=== PATIENT | female | born 1940 | race Caucasian/White ===

== ENCOUNTER → 2017-09-11 00:56 | Outpatient (REF) | payer SELFPAY ==
[2017-09-11 08:23] LABS: Anion Gap 9.7 mmol/L (3-11); BUN 41 mg/dL (7-18); CO2 26.3 mmol/L (21.0-32.0); CREATININE 3.45 mg/dL (0.55-1.02); Calcium 8.4 mg/dL (8.5-10.1); Chloride 103 mmol/L (98-107); Estimated GFR 12.95 (mL/min/1.73m2); Glucose 82 mg/dL (70-100); Potassium 3.8 mmol/L (3.5-5.1); Sodium 139 mmol/L (136-145)
== END ==
LOC: LBO 00:56
PROVIDERS: PCP Student in an Organized Health Care Education/Training Program; Visit Provider Internal Medicine Nephrology
DX: N18.6 End stage renal disease (principal)

== ENCOUNTER → 2017-09-13 | Outpatient (REF) | payer SELFPAY ==
[2017-09-13 07:45] LABS: Anion Gap 9.8 mmol/L (3-11); BUN 59 mg/dL (7-18); CO2 22.2 mmol/L (21.0-32.0); Calcium 8.3 mg/dL (8.5-10.1); Chloride 105 mmol/L (98-107); Estimated GFR 11.91 (mL/min/1.73m2); Glucose 98 mg/dL (70-100); Potassium 4.3 mmol/L (3.5-5.1); Sodium 137 mmol/L (136-145)
[2017-09-13 07:49] LABS: CREATININE 3.71 mg/dL (0.55-1.02)
== END ==
LOC: LBO
PROVIDERS: PCP Student in an Organized Health Care Education/Training Program; Visit Provider Internal Medicine Nephrology
DX: N18.6 End stage renal disease (principal)
CPT/HCPCS: 36415; 80048

== ENCOUNTER 2017-11-08 16:25 | Outpatient (CLI) | payer MEDICARE, SELFPAY ==
--- NOTE | 2017-11-08 11:41 | DI.RAD_ITS ---
SYMPTOM/DIAGNOSIS: SHORT OF BREATH, RALES LT BASE CHEST X-RAY: Frontal and lateral views. Comparison 07/05/16 The heart is mildly enlarged but stable. Pulmonary vasculature is within normal limits. Chronic interstitial markings are seen in the lungs predominantly the bases suggesting chronic pulmonary fibrosis. No focal consolidating infiltrates, effusions or pneumothoraces are seen. No findings to suggest congestive heart failure are present. Degenerative changes are seen in the spine. The bones appear hyperinflated suggesting underlying COPD. IMPRESSION: No acute pulmonary process. Findings suggestive of chronic interstitial disease. This is identified also on the CT scan of the chest from 07/04/17.
== END 2017-11-08 16:45 ==
PROVIDERS: PCP Student in an Organized Health Care Education/Training Program; Visit Provider Internal Medicine Nephrology
DX: R06.02 Shortness of breath (principal); R09.89 Other specified symptoms and signs involving the circulatory and respiratory systems; J84.9 Interstitial pulmonary disease, unspecified; J44.9 Chronic obstructive pulmonary disease, unspecified
CPT/HCPCS: 71046

== ENCOUNTER → 2017-12-11 14:16 | Outpatient (BNVA) | payer MEDICARE, SELFPAY | PROVIDERS: PCP Student in an Organized Health Care Education/Training Program; Visit Provider Student in an Organized Health Care Education/Training Program | DX: R06.02 Shortness of breath (principal); I48.0 Paroxysmal atrial fibrillation; I27.20 Pulmonary hypertension, unspecified; I13.2 Hypertensive heart and chronic kidney disease with heart failure and with stage 5 chronic kidney disease, or end stage renal disease; N18.6 End stage renal disease; I50.9 Heart failure, unspecified; Z99.2 Dependence on renal dialysis; Z99.81 Dependence on supplemental oxygen | CPT/HCPCS: 36415; 80048; 80076; 99215; 83735; 83880; 84443; 85025; 85610 ==

== ENCOUNTER 2017-12-11 15:29 | Outpatient (CLI) | payer MEDICARE, MEDICAID, SELFPAY ==
[2017-12-11 16:25] LABS: Abs Immature Grans 0.08 k/cumm (0.0-0.09); Absolute Basophil Count 0.08 k/cumm (0.0-0.2); Absolute Eosinophil Count 0.18 k/cumm (0.0-0.7); Absolute Lymphocyte Count 1.36 k/cumm (1.2-3.4); Absolute Monocyte Count 0.83 k/cumm (0.11-0.7); Absolute Neutrophil Count 11.08 k/cumm (1.2-6.7); Basophils % 0.6; Eosinophils % 1.3; HGB 10.9 g/dL (12.0-15.5); Immature Grans % 0.6; Mean Corp. HGB Concentration 32.1 g/dL (32.0-36.0); Mean Corpuscular Hemoglobin 30.3 pg (27.0-33.0); Mean Corpuscular Volume 94.4 fL (80-95); Mean Platelet Volume 9.6 fL (8.0-11.0); Monocytes % 6.1; Neutrophils % 81.4; Platelet Count 318 x1000/uL (130-400); RBC Distribution Width 16.1 % (11.7-14.6); White Blood Cell Count 13.61 k/cumm (4.4-10.8)
[2017-12-11 16:38] LABS: INR 2.1 (1.0-3.5); Prothrombin Time 19.7 sec (9.3-10.8)
[2017-12-11 17:29] LABS: ALT 102 U/L (12-78); AST 52 U/L (15-37); Albumin 3.2 g/dL (3.4-5.0); Alkaline Phosphatase 80 U/L (46-116); Anion Gap 7.9 mmol/L (3-11); BUN 23 mg/dL (7-18); Bilirubin, Direct 0.23 mg/dL (0.00-0.20); Bilirubin, Total 0.8 mg/dL (0.2-1.0); CO2 34.1 mmol/L (21.0-32.0); CREATININE 2.71 mg/dL (0.55-1.02); Calcium 9.1 mg/dL (8.5-10.1); Chloride 95 mmol/L (98-107); Estimated GFR 17.11 (mL/min/1.73m2); Glucose 99 mg/dL (70-100); Magnesium 1.9 mg/dL (1.8-2.4); NT-proBNP 22421 pg/mL; Potassium 3.4 mmol/L (3.5-5.1); Sodium 137 mmol/L (136-145); TSH (W/Ref FT4) 2.01 uIU/mL (0.358-3.74); Total Protein 7.5 g/dL (6.4-8.2)
== END 2017-12-11 15:49 ==
PROVIDERS: PCP Student in an Organized Health Care Education/Training Program; Visit Provider Student in an Organized Health Care Education/Training Program
DX: I35.0 Nonrheumatic aortic (valve) stenosis (principal); R06.02 Shortness of breath; I48.91 Unspecified atrial fibrillation; Z79.01 Long term (current) use of anticoagulants
CPT/HCPCS: 36415; 80048; 80076; 83735; 83880; 84443; 85025; 85610

== ENCOUNTER 2017-12-19 07:15 | Outpatient (CLI) | payer MEDICARE, SELFPAY ==
[2017-12-19 07:44] LABS: HCT 34.2 % (36.0-46.0); HGB 10.9 g/dL (12.0-15.5); Mean Corp. HGB Concentration 31.9 g/dL (32.0-36.0); Mean Corpuscular Hemoglobin 30.2 pg (27.0-33.0); Mean Corpuscular Volume 94.7 fL (80-95); Mean Platelet Volume 8.9 fL (8.0-11.0); Platelet Count 296 x1000/uL (130-400); RBC 3.61 m/cumm (4.00-5.20); RBC Distribution Width 15.8 % (11.7-14.6); White Blood Cell Count 8.76 k/cumm (4.4-10.8)
[2017-12-19 08:57] LABS: Cholesterol 131 mg/dL (50-200); HDL Cholesterol 52 mg/dL (40-60); LDL CHOLESTEROL 64 mg/dL (<100); Triglyceride 86 mg/dL (30-150)
== END 2017-12-19 07:35 ==
PROVIDERS: PCP Student in an Organized Health Care Education/Training Program; Visit Provider Student in an Organized Health Care Education/Training Program
DX: N18.5 Chronic kidney disease, stage 5 (principal); M54.9 Dorsalgia, unspecified; I48.91 Unspecified atrial fibrillation; E78.5 Hyperlipidemia, unspecified
CPT/HCPCS: 36415; 80061; 83721; 85027

== ENCOUNTER 2017-12-26 00:41 | Outpatient (CLI) | payer MEDICARE, SELFPAY ==
--- NOTE | 2017-12-26 10:18 | MERGE_ITS ---
*[facility]* *[facility]* [address] [place] [address] Date of study: 12/26/2017 Transthoracic Echocardiography M-mode, complete 2D, complete spectral Doppler, and color Doppler *STUDY CONCLUSIONS* Impressions: The right ventricular systolic pressure was increased consistent with severe pulmonary hypertension. Summary: 1. Left ventricle: The cavity size was normal. Wall thickness was increased in a pattern of mild LVH. Systolic function was hyperdynamic. The estimated ejection fraction was 65-70%. Diastolic parameters were normal. There was no evidence of elevated ventricular filling pressure by Doppler parameters. 2. Ventricular septum: The contour showed diastolic flattening and systolic flattening. These changes are consistent with RV volume and RV pressure overload. 3. Aortic valve: There was mild stenosis. There was mild regurgitation. Peak velocity (S): 2.6m/sec. Mean gradient (S): 17.5mm Hg. VTI ratio of LVOT to aortic valve: 0.47. Valve area (VTI): 1.2cm^2. 4. Right ventricle: The cavity size was moderately dilated. Wall thickness was moderately increased. Systolic function was mildly reduced. 5. Atrial septum: No defect or patent foramen ovale was identified. 6. Tricuspid valve: There was moderate-severe regurgitation. 7. Pulmonary arteries: Pulmonary systolic pressure was in the range of 75mm Hg to 85mm Hg. 8. Inferior vena cava: The vessel was patent and normal in size. The respirophasic diameter changes were in the normal range (greater than or equal to 50%), consistent with normal central venous pressure. *PATIENT PRESENTATION* Height: 154.9cm ((61in) ) S/D Pressure: 98 / 57 Weight: 61.2kg ((134.7lb) ) BSA: 1.64m^2 Test start time: 10:30 AM. Test stop time: 11:40 AM. PERFORMING Unknown ORDERING Benjamin Castellanos REFERRING Benjamin Castellanos PERFORMING [facility] PNEUDRAULIC SYSTEMS MECHANIC Jessica Cadena, RT (R)(CT), [facility] *PROCEDURE DATA* Procedure information: The patient was identified by two identifiers. This study was interpreted by [facility]. Pertinent images and digital data are archived for permanent storage and are available for subsequent review. Comparison was made to the study of 07/20/2016. Study status: Routine. Transthoracic echocardiography. M-mode, complete 2D, complete spectral Doppler, and color Doppler. A Transthoracic Echocardiogram was performed. Scanning was performed from the parasternal, apical, subcostal, and suprasternal notch acoustic windows. Images were obtained using an [id number] cardiac ultrasound machine. Image quality was adequate. Study completion: The patient tolerated the procedure well. History: PMH: Aortic stenosis. *CARDIAC ANATOMY* Left ventricle: The cavity size was normal. Wall thickness was increased in a pattern of mild LVH. Systolic function was hyperdynamic. The estimated ejection fraction was 65-70%. The tissue Doppler parameters were normal. Diastolic parameters were normal. There was no evidence of elevated ventricular filling pressure by Doppler parameters. Aortic valve: Trileaflet; moderately thickened, moderately calcified leaflets. Doppler: There was mild stenosis. There was mild regurgitation. VTI ratio of LVOT to aortic valve: 0.47. Valve area (VTI): 1.2cm^2. Indexed valve area (VTI): 0.7cm^2/m^2. Peak velocity ratio of LVOT to aortic valve: 0.47. Valve area (Vmax): 1.2cm^2. Indexed valve area (Vmax): 0.7cm^2/m^2. Mean velocity ratio of LVOT to aortic valve: 0.44. Valve area (Vmean): 1.1cm^2. Indexed valve area (Vmean): 0.7cm^2/m^2. Mean gradient (S): 17.5mm Hg. Peak gradient (S): 27.6mm Hg. Aorta: Aortic root: The aortic root was normal in size. Ascending aorta: The ascending aorta was mildly dilated. Mitral valve: Doppler: There was no evidence for stenosis. There was no significant regurgitation. Valve area by pressure half-time: 3.7cm^2. Indexed valve area by pressure half-time: 2.2cm^2/m^2. Peak gradient (D): 5.3mm Hg. Left atrium: The atrium was normal in size. Atrial septum: No defect or patent foramen ovale was identified. Right ventricle: The cavity size was moderately dilated. Wall thickness was moderately increased. Systolic function was mildly reduced. Ventricular septum: The contour showed diastolic flattening and systolic flattening. These changes are consistent with RV volume and RV pressure overload. Pulmonic valve: Doppler: There was no evidence for stenosis. There was mild regurgitation. Peak gradient (S): 4.1mm Hg. Tricuspid valve: Doppler: There was moderate-severe regurgitation. Pulmonary artery: Poorly visualized. Pulmonary systolic pressure was in the range of 75mm Hg to 85mm Hg. Right atrium: The atrium was normal in size. Pericardium: There was no significant pericardial effusion. Systemic veins: Inferior vena cava: Well visualized. The vessel was patent and normal in size. The respirophasic diameter changes were in the normal range (greater than or equal to 50%), consistent with normal central venous pressure. Baseline ECG: Atrial fibrillation. Measurements Left ventricle Value 06/19/2016 Reference LV ID, ED, PLAX (L) 3.0 cm 4.4 3.5 - 6.0 LV ID, ES, PLAX (L) 1.9 cm 2.8 2.1 - 4.0 LV PW thickness, ED, PLAX 1.1 cm 1.0 LV end-diastolic volume, 26 ml 1-p A2C LV ejection fraction, 1-p 58 % 71 A2C LV end-diastolic volume, 34 ml 1-p A4C LV ejection fraction, 1-p 64 % 54 A4C LV e', lateral 0.102 m/sec LV E/e', lateral 11 LV e', medial 0.087 m/sec LV E/e', medial 13 LV e', average 0.094 m/sec LV E/e', average 12 Ventricular septum Value 06/19/2016 Reference IVS thickness, ED, PLAX 1.1 cm 1.0 LVOT Value 06/19/2016 Reference LVOT ID, A-P 1.8 cm 1.8 LVOT area 2.6 cm^2 2.6 LVOT peak velocity, S 1.24 m/sec 1.39 LVOT mean velocity, S 0.9 m/sec LVOT VTI, S 21.6 cm 32.0 LVOT peak gradient, S 6.1 mm Hg 7.8 LVOT mean gradient, S 3.6 mm Hg 4.3 Stroke volume (SV), LVOT 55 ml DP Stroke index (SV/bsa), 34 ml/m^2 LVOT DP Aortic valve Value 06/19/2016 Reference Aortic valve peak 2.6 m/sec 3 velocity, S Aortic valve mean 2.02 m/sec velocity, S Aortic valve VTI, S 46.0 cm Aortic mean gradient, S 17.5 mm Hg Aortic peak gradient, S 27.6 mm Hg 36 VTI ratio, LVOT/AV 0.47 0.47 Aortic valve area, VTI 1.2 cm^2 1.2 Velocity ratio, peak, 0.47 0.46 LVOT/AV Aortic valve area, peak 1.2 cm^2 1.2 velocity Velocity ratio, mean, 0.44 LVOT/AV Aortic valve area, mean 1.1 cm^2 velocity Aortic valve area/bsa, 0.7 cm^2/m^2 mean velocity Aorta Value 06/19/2016 Reference Aortic root ID, ED 2.6 cm Ascending aorta ID, A-P, S 3.3 cm 3.3 Left atrium Value 06/19/2016 Reference LA area, ES, A4C 18.6 cm^2 27 8.8 - 23.4 LA area, ES, A2C 15 cm^2 LA volume/bsa, ES, 1-p A4C 31 ml/m^2 62 LA volume, ES, 2-p 48 ml LA volume/bsa, ES, 2-p 29 ml/m^2 Mitral valve Value 06/19/2016 Reference Mitral E-wave peak 1.15 m/sec 1.3 velocity Mitral deceleration time 208 ms 150 - 230 Mitral pressure half-time 60 ms 79 Mitral peak gradient, D 5.3 mm Hg 6.8 Mitral valve area, PHT, DP 3.7 cm^2 2.8 Tricuspid valve Value 06/19/2016 Reference Tricuspid regurg peak 4 m/sec 3.7 velocity Tricuspid peak RV-RA 65.2 mm Hg 54.9 gradient Right atrium Value 06/19/2016 Reference RA area, ES, A4C 17.6 cm^2 21 8.3 - 19.5 Pulmonic valve Value 06/19/2016 Reference Pulmonic peak gradient, S 4.1 mm Hg 7.4 Legend: (L) and (H) romulo values outside specified reference range. I have personally reviewed the images and have reviewed and edited the reported findings. Electronically signed by Bob Tidwell MD 12/26/2017 13:33
== END 2017-12-26 01:01 ==
PROVIDERS: PCP Student in an Organized Health Care Education/Training Program; Visit Provider Student in an Organized Health Care Education/Training Program
DX: I27.20 Pulmonary hypertension, unspecified (principal); I08.2 Rheumatic disorders of both aortic and tricuspid valves; I35.0 Nonrheumatic aortic (valve) stenosis
CPT/HCPCS: 93306

== ENCOUNTER → 2018-01-01 14:15 | Outpatient (BNVA) | payer MEDICARE, SELFPAY | PROVIDERS: PCP Student in an Organized Health Care Education/Training Program; Visit Provider Student in an Organized Health Care Education/Training Program | DX: R06.02 Shortness of breath (principal); I48.0 Paroxysmal atrial fibrillation; I27.20 Pulmonary hypertension, unspecified; I13.2 Hypertensive heart and chronic kidney disease with heart failure and with stage 5 chronic kidney disease, or end stage renal disease; N18.6 End stage renal disease; Z99.2 Dependence on renal dialysis; E11.22 Type 2 diabetes mellitus with diabetic chronic kidney disease; I50.9 Heart failure, unspecified; J44.9 Chronic obstructive pulmonary disease, unspecified; Z99.81 Dependence on supplemental oxygen | CPT/HCPCS: 99215 ==

== ENCOUNTER 2018-01-09 01:19 | Outpatient (CLI) | payer MEDICARE, SELFPAY ==
--- NOTE | 2018-01-09 14:43 | DI.CT_ITS ---
SYMPTOMS/DIAGNOSIS: PULMONARY HYPERTENSION, I27.[address], HIGH RESOLUTION: CT examination of the chest was performed utilizing helical and high resolution protocol. High resolution scanning was performed in supine inspiratory and expiratory and prone inspiratory positions. Examination is compared to previous examination of 07/04/17. Note is again made of interstitial radiodensities, most prominent in the lung bases with subpleural emphysema and some early honeycombing in the lung bases. There is diffuse central lobular emphysema. Expiratory images show no gross focal air trapping. Healed granulomatous disease again noted with multiple calcified nodules. Tracheobronchial tree appears intact. No acute consolidation seen. No pleural effusions seen. No mediastinal or hilar adenopathy. Images obtained through the upper abdomen are unremarkable. Mild cardiac enlargement noted. No evidence of pericardial effusion. Prominence of mediastinal lymph nodes again noted with 23 mm pretracheal node the largest visible node. CONCLUSION: No gross interval change from 07/04/17. Findings consistent with pulmonary fibrosis with early honeycombing, predominantly involving the lung bases; note is also made of marked central lobular diffuse emphysema.
== END 2018-01-09 01:39 ==
PROVIDERS: PCP Student in an Organized Health Care Education/Training Program; Visit Provider Internal Medicine
DX: I27.20 Pulmonary hypertension, unspecified (principal); J84.10 Pulmonary fibrosis, unspecified; J43.9 Emphysema, unspecified
CPT/HCPCS: 71250

== ENCOUNTER 2018-01-23 13:56 | Outpatient (CLI) | payer MEDICARE, SELFPAY | END 2018-01-23 14:16 | PROVIDERS: PCP Student in an Organized Health Care Education/Training Program; Visit Provider Internal Medicine | DX: J44.9 Chronic obstructive pulmonary disease, unspecified (principal); J43.9 Emphysema, unspecified; I27.20 Pulmonary hypertension, unspecified; Z53.8 Procedure and treatment not carried out for other reasons ==

== ENCOUNTER 2018-01-28 11:05 | Emergency (ER) | payer MEDICARE, SELFPAY ==
[2018-01-28] VITALS (7 sets, daily range): BP systolic 137–152; BP diastolic 43–80; PULSE 66–98; RESP 18–26; TEMP 36; O2SAT 94–98
--- NOTE | 2018-01-28 11:11 | ED.GENADUL_ITS ---
Discharge Plan Disposition Patient Disposition: HOME Condition: Stable Discharge Details Chief Complaint: SOB Clinical Impression: Breath, shortness, COPD (chronic obstructive pulmonary disease) Primary Care Provider: Aury Melissa ED Provider: Bob Pinto [place] Meds and New Rx's Prescriptions: New prednisone 20 mg tablet 60 mg PO DAILY 4 Days Qty: 12 RF: 0 levofloxacin 750 mg tablet 750 mg PO DAILY Qty: 5 RF: 0 No Action methylprednisolone [Medrol (Saul)] 4 mg tablets,dose pack PO RF: 0 capsaicin 0.1 % cream 1 applic TP TID Qty: 56.6 RF: 1 apixaban [Eliquis] 5 mg tablet 5 mg PO BID Qty: 60 RF: 11 psyllium seed (sugar) [Metamucil (sugar)] powder 1 tsp PO BID RF: 0 metoprolol succinate 25 mg tablet extended release 24 hr 25 mg PO BID Qty: 180 RF: 1 varicella-zoster [id number] (PF) [Shingrix (PF)] 50 mcg/0.5 mL suspension for reconstitution 50 mcg IM ONCE Qty: 1 RF: 0 Oxygen EACH NS PRN Qty: 1 RF: 0 acetaminophen 325 MG tablet 650 mg PO Q6H PRN RF: 0 atorvastatin 40 MG tablet 40 mg PO DAILY Qty: 90 RF: 3 allopurinol 100 mg tablet 100 mg PO DAILY Qty: 90 RF: 3 umeclidinium-vilanterol [Anoro Ellipta] 62.5-25 mcg/actuation blister with device 1 inh IH DAILY RF: 0 albuterol sulfate 90 mcg/actuation HFA aerosol inhaler 2 inh IH Q4H PRNRF: 0 ferrous sulfate [FeroSul] 325 MG tablet 650 mg PO DAILY RF: 0 calcium carbonate 500 MG tablet,chewable 1 tab PO TID RF: 0 B complex-vitamin C-folic acid [Nephro-Stanley] 1 TAB tablet 0.8 mg PO DAILY RF: 0 ondansetron 4 MG tablet,disintegrating 4 mg PO Q8H PRN PRNQty: 30 RF: 0 Discharge Instructions Instructions: Dyspnea (ED) Additional Instructions: you are being treated for a copd exacerbation follow up with your primary care provider within a week if you have severe worsening of symptoms or chest pain/pressure return to the emergency department Medical Decision Making 77 yo female with hx of esrd on dialysis mwf with no recent missed sessions per pt, pulmonary htn, copd/emphysema per pt, htn, cvd, who comes in with complaints of intermittent shortness of breath since last night, general weakness and dry cough. Denies recent travel, high fevers or chest pain/pressure. She has no lower extremity edema or calf pain and is speaking in full setnences. She is normally on home o2 at 2.5L and is currently on this and is 98% on my exam and HR of 70. will eval for chf vs pna with chest xray and test for influenza. No chest pain or pressure so doubt acs. No evidence of dvt, worsening hypoxia or tachycardia so doubt PE at this time pt remains stable, feels better after neb and steroids. Labs show known esrd, troponin with mild elevation at 0.09 which is likely from her renal disease, remains pain free. Will repeat this to see if any significant rise. Xray on my read shows possible right lower lobe atelectasis less likely infiltrate. Given her increased cough and wheezing however will start abx to cover for copd exacerbation Dr. Kim from radiology called and he is concerned for possible [place] sign, recs CTA. She remains stable, will order this to eval for PE. She remains Hd stable cta negative for acute finding per Dr. kim. She remains stable. No pna on ct but given her cough and hx of copd will start abx. She will f/u with pcp within a week and return if worsening symptoms Differential Diagnosis influenza, copd, pulmonary htn, pulmonary edema, pna Imaging Data Radiologic Study: Attestation: I personally reviewed and interpreted this imaging study as follows: Imaging: X-Ray Radiologist's impression: possible [place] sign Lab Data Lab results reviewed: Yes I reviewed the patient's lab results. ECG Data Attestation: I personally reviewed and interpreted this ECG (s) as follows: Prior ECG tracings: not available for review Interpretation: sinus rhythm, left axis, pr 200, rate 72 HPI General Mode of arrival: ambulatory . Date/Time Provider Initiated Documentation: 01/28/18 11:07 . Limitations to Documentation: no limitations . Information obtained by: patient . History of Present Illness 77 year old F presents to the emergency department with the chief complaint of shortness of breat, described as moderate, with intensity rated at 4. Patient reports no radiation. Patient started experiencing this day(s) (1) and it has been intermittent. No relieving factors improve symptom(s), No exacerbating factors reported . Patient notes cough and weakness. Patient did receive the following treatments prior to arrival, none Related Data Home Medications Medication Instructions Recorded Confirmed B complex-vitamin C-folic acid 0.8 mg PO DAILY 06/15/16 01/09/18 [Nephro-Stanley] calcium carbonate 1 tab PO TID 06/15/16 01/09/18 ferrous sulfate [FeroSul] 650 mg PO DAILY 06/15/16 01/09/18 acetaminophen 650 mg PO Q6H PRN tab-cap 11/12/16 01/09/18 ondansetron 4 mg PO Q8H PRN PRN #30 tab.rapdis 11/14/16 01/01/18 atorvastatin 40 mg PO DAILY #90 tab-cap 09/13/17 01/09/18 psyllium seed (sugar) oral powder 1 tsp PO BID gm 10/31/17 01/09/18 metoprolol succinate ER 25 mg 25 mg PO BID #180 tab 11/07/17 01/09/18 tablet,extended release 24 hr varicella-zoster glycoE vacc-AS01B 50 mcg IM ONCE #1 each 11/07/17 01/09/18 adj(PF) 50 mcg/0.5 mL IM susp, kit Eliquis 5 mg tablet 5 mg PO BID #60 tab NS 12/16/17 01/09/18 allopurinol 100 mg tablet 100 mg PO DAILY #90 tab-cap 01/01/18 01/09/18 albuterol sulfate HFA 90 2 inh IH Q4H PRN 01/07/18 01/09/18 mcg/actuation aerosol inhaler umeclidinium 62.5 mcg-vilanterol 1 inh IH DAILY 01/07/18 01/09/18 25 mcg/actuation powdr for inhalation capsaicin 0.1 % topical cream 1 applic TP TID #56.6 gm 01/09/18 01/09/18 methylprednisolone 4 mg tablets in mg PO dose pk 01/09/18 01/09/18 a dose pack levofloxacin 750 mg PO DAILY #5 tab 01/28/18 prednisone 60 mg PO DAILY 4 Days #12 tab 01/28/18 Previous Rx's Medication Instructions Recorded ondansetron 4 mg PO Q8H PRN PRN #30 tab.rapdis 11/14/16 atorvastatin 40 mg PO DAILY #90 tab-cap 09/13/17 metoprolol succinate ER 25 mg 25 mg PO BID #180 tab 11/07/17 tablet,extended release 24 hr varicella-zoster glycoE vacc-AS01B 50 mcg IM ONCE #1 each 11/07/17 adj(PF) 50 mcg/0.5 mL IM susp, kit Eliquis 5 mg tablet 5 mg PO BID #60 tab NS 12/16/17 allopurinol 100 mg tablet 100 mg PO DAILY #90 tab-cap 01/01/18 capsaicin 0.1 % topical cream 1 applic TP TID #56.6 gm 01/09/18 levofloxacin 750 mg PO DAILY #5 tab 01/28/18 prednisone 60 mg PO DAILY 4 Days #12 tab 01/28/18 Allergies Allergy/AdvReac Type Severity Reaction Status Date / Time morphine AdvReac Intermediate Nausea Unverified 01/01/18 14:31 paper tape Allergy Unknown rash Uncoded 01/01/18 14:31 Review of Systems Review of Systems All systems reviewed & are unremarkable except as noted in HPI and below Constitutional Denies chills Cardiovascular Denies chest pain Gastrointestinal Denies abdominal pain, Denies nausea and Denies vomiting Genitourinary Denies dysuria Musculoskeletal Denies joint swelling Integumentary/Breasts Denies rash Psychiatric Denies depression Endocrine Denies heat intolerance PFSH Medical History Diabetes (Chronic) ASCVD (arteriosclerotic cardiovascular disease) Atrial fibrillation CHF (congestive heart failure) Diverticulitis Surgical History Carotid endarterectomy EGD w/ BX (03/28/12) Ligation of fallopian tube Vascular Shunt colonscopy w/ bx (03/28/12) hemodialysis shunt (09/28/16) radical nephrectomy left (11/02/16) Family History Mother Essential hypertension Father Heart disease Myocardial infarction Sister Neoplasm Diabetes Social History lives independently: Yes current occupational status: retired Smoking/Tobacco Use Status: Former Tobacco Use quit date: 02/11/89 pack-years: 2 alcohol intake: current alcohol intake frequency: a few times a month Alcohol type: wine Exam Const General: no acute distress Orientation: alert HENMT Head: normal to inspection Ears: external ears normal General nose exam: external nose normal Mouth: moist mucous membranes Eyes General: appearance normal, both eyes and all related structures Neck Neck: normal visual inspection Resp Effort & Inspection: normal respiratory effort and able to speak in complete sentences Cardio Rate: regular rate Skin General skin exam: no rashes or lesions noted Neuro General: alert and oriented x3 Extrem General: normal to inspection Psych Mental Status: mental status grossly normal
[2018-01-28] MEDS: Albuterol/Ipratropium 3 ML UPD VIAL UPD (11:44)
[2018-01-28] MEDS: methylPREDNISolone SUCC 125 MG VIAL IVP (11:44)
[2018-01-28] MEDS: Normal Saline Flush 10 ML SYR IVP (11:44)
[2018-01-28 11:49] LABS: Abs Immature Grans 0.03 k/cumm (0.0-0.09); Absolute Basophil Count 0.03 k/cumm (0.0-0.2); Absolute Eosinophil Count 0.07 k/cumm (0.0-0.7); Absolute Lymphocyte Count 0.91 k/cumm (1.2-3.4); Absolute Monocyte Count 0.59 k/cumm (0.11-0.7); Absolute Neutrophil Count 4.75 k/cumm (1.2-6.7); Basophils % 0.5; Eosinophils % 1.1; HCT 35.3 % (36.0-46.0); HGB 11.4 g/dL (12.0-15.5); Immature Grans % 0.5; Lymphocytes % 14.3; Mean Corp. HGB Concentration 32.3 g/dL (32.0-36.0); Mean Corpuscular Hemoglobin 30.9 pg (27.0-33.0); Mean Corpuscular Volume 95.7 fL (80-95); Mean Platelet Volume 10.1 fL (8.0-11.0); Monocytes % 9.2; Neutrophils % 74.4; Platelet Count 161 x1000/uL (130-400); RBC 3.69 m/cumm (4.00-5.20); RBC Distribution Width 16.6 % (11.7-14.6); White Blood Cell Count 6.38 k/cumm (4.4-10.8)
[2018-01-28 11:59] LABS: INR 1.1 (1.0-3.5); PTT Activated 27.9 sec (21.0-31.4)
[2018-01-28 12:04] LABS: ALT 75 U/L (12-78); AST 48 U/L (15-37); Albumin 3.3 g/dL (3.4-5.0); Alkaline Phosphatase 54 U/L (46-116); Anion Gap 11.5 mmol/L (3-11); BUN 50 mg/dL (7-18); Bilirubin, Total 0.6 mg/dL (0.2-1.0); CO2 29.5 mmol/L (21.0-32.0); Calcium 8.9 mg/dL (8.5-10.1); Chloride 92 mmol/L (98-107); Estimated GFR 10.07 (mL/min/1.73m2); Glucose 113 mg/dL (70-100); Magnesium 1.9 mg/dL (1.8-2.4); NT-proBNP 21722 pg/mL; Potassium 3.5 mmol/L (3.5-5.1); Sodium 133 mmol/L (136-145); Total Protein 7.4 g/dL (6.4-8.2)
[2018-01-28 12:13] LABS: CREATININE 4.29 mg/dL (0.55-1.02); Troponin I 0.09 ng/mL (0.00-0.06)
--- NOTE | 2018-01-28 12:24 | NUR.NOTE ---
Nursing Note: Pt off unit to xray.
--- NOTE | 2018-01-28 12:33 | DI.RAD_ITS ---
SYMPTOM/DIAGNOSIS: SOB PA AND LATERAL CHEST: The lungs are free of infiltrate. There is no pleural effusion. The heart is top limits of normal in size to mildly enlarged. The appearance of the pulmonary arteries would be consistent with pulmonary arterial hypertension. There is no evidence of hilar or mediastinal adenopathy. The tracheal air column is intact. There are atherosclerotic changes involving the aorta without evidence of an aneurysm. SUMMARY: No evidence of overt congestive failure or pneumonia. Borderline cardiomegaly. The possibility of pulmonary embolic disease could not be excluded in this patient and if clinically appropriate, further assessment with a PE CT is recommended.
--- NOTE | 2018-01-28 13:46 | DI.CT_ITS ---
SYMPTOMS/DIAGNOSIS: HYPOXIA, SHORTNESS OF BREATH PE CT: CT angiography was performed with multi slice acquisition and multi planar and 3D reconstruction. The study was conducted according to the usual protocol with intravenous administration of 100 cc of Omnipaque 350. There is evidence of COPD. Small areas of bibasilar fibrosis and/or scarring are identified. There are small calcific areas of nodularity in the right lower lobe consistent with old healed granulomata. There is no apparent mass. There is no hilar or mediastinal adenopathy. The heart is top limits of normal in size. There is evidence in this patient of pulmonary arterial hypertension. There is some prominence of the right atrium and right ventricle; however, there is no clear-cut evidence of overt right ventricular strain. There is no pericardial effusion. There are diffuse atherosclerotic changes involving the aorta without evidence of an aneurysm. Also, coronary artery calcification is demonstrated. SUMMARY: No evidence of pulmonary embolic disease. Chronic pulmonary changes as noted above.
--- NOTE | 2018-01-28 14:11 | NUR.NOTE ---
Nursing Note: Resting in bed, no acute distress. awaiting CT scan. Friend at bedside. will continue to monitor, no needs at this time
[2018-01-28 14:21] LABS: Troponin I 0.08 ng/mL (0.00-0.06)
[2018-01-28] MEDS: Omnipaque 350 MG/ML 100 ML BTL IJ (14:33)
[2018-01-28] MEDS: LEVOFLOXACIN 500 MG, LEVOFLOXACIN 250 MG 750 MG PO (15:39)
== END 2018-01-28 15:49 | disposition home or self-care (01) ==
PROVIDERS: Emergency Provider Emergency Medicine; PCP Student in an Organized Health Care Education/Training Program
DX: R06.02 Shortness of breath (principal); J44.9 Chronic obstructive pulmonary disease, unspecified; Z87.891 Personal history of nicotine dependence; E11.9 Type 2 diabetes mellitus without complications
CPT/HCPCS: 36415; 71275; 80053; 87449; 93005; 94640; 96374; 99285; 71046; 83735; 83880; 84484; 85025; 85610; 85730; 93010; J2930; J3490; J7620

== ENCOUNTER 2018-03-11 00:45 | Outpatient (CLI) | payer MEDICARE, MEDICAID, SELFPAY ==
--- NOTE | 2018-03-11 10:30 | DI.RAD_ITS ---
SYMPTOM/DIAGNOSIS: PULMONARY HYPERTENSION I 27.20 PA AND LATERAL CHEST: Comparison is made with 28 Jan 2018. The heart is mildly enlarged, unchanged. There are chronic interstitial changes greater at the bases. No superimposed acute infiltrate, effusion or pulmonary edema seen. IMPRESSION: Cardiomegaly and interstitial changes. No acute abnormality.
--- NOTE | 2018-03-11 10:30 | DI.NM_ITS ---
SYMPTOM/DIAGNOSIS: PULMONARY HYPERTENSION, I27.20, EXCLUDE CTEPH VENTILATION PERFUSION LUNG SCAN: Comparison is made with chest xray dated 03/11/18. 29.0 millicuries of DTPA were administered via aersol. The ventilation images have a mildly patchy appearance, greater in the upper lobes which could be secondary to emphysematous changes. 4.1 millicuries of Technetium M MAA was administered IV for the perfusion exam. The perfusion images are homogeneous. No perfusion defects are identified. IMPRESSION: Low probability of pulmonary embolism.
== END 2018-03-11 01:05 ==
PROVIDERS: PCP Student in an Organized Health Care Education/Training Program; Visit Provider Nurse Practitioner Adult Health
DX: I27.20 Pulmonary hypertension, unspecified (principal); I42.9 Cardiomyopathy, unspecified; I51.7 Cardiomegaly; R91.8 Other nonspecific abnormal finding of lung field; I35.0 Nonrheumatic aortic (valve) stenosis
CPT/HCPCS: 78582; 71046

== ENCOUNTER 2018-03-31 12:54 | Outpatient (CLI) | payer MEDICARE, SELFPAY | END 2018-03-31 13:14 | PROVIDERS: PCP Student in an Organized Health Care Education/Training Program; Visit Provider Student in an Organized Health Care Education/Training Program | DX: R69 Illness, unspecified | CPT/HCPCS: 36415; 86850; 86900; 86901; 86920; 85014; 85018 ==

== ENCOUNTER 2018-04-02 00:59 | Outpatient (RCR) | payer MEDICARE, MEDICAID, SELFPAY ==
[2018-03-31 13:27] LABS: HCT 27.9 % (36.0-46.0); HGB 9.1 g/dL (12.0-15.5)
[2018-04-02 06:55] VITALS: BP 133/44; PULSE 80; RESP 22; TEMP 36.5; O2SAT 89
[2018-04-02] MEDS: Normal Saline Flush 10 ML SYR IVP (07:19)
[2018-04-02 07:24] VITALS: BP 114/46; PULSE 60; RESP 18; TEMP 36; O2SAT 96
[2018-04-02 07:39] VITALS: BP 115/45; PULSE 65; RESP 18; TEMP 36.1; O2SAT 98
[2018-04-02 08:09] VITALS: BP 123/48; PULSE 57; RESP 20; TEMP 36.4; O2SAT 96
[2018-04-02 09:09] VITALS: BP 135/53; PULSE 58; RESP 18; TEMP 36; O2SAT 95
[2018-04-02] MEDS: Acetaminophen 325 MG TAB 650 MG PO (10:57)
[2018-04-02] MEDS: Furosemide 40 MG/4 ML VIAL IV (11:12)
[2018-04-02 11:24] VITALS: BP 137/57; PULSE 59; RESP 18; TEMP 36.2; O2SAT 95
== END 2018-04-10 23:59 | disposition home or self-care (01) ==
LOC: INF 00:59
PROVIDERS: PCP Student in an Organized Health Care Education/Training Program; Visit Provider Student in an Organized Health Care Education/Training Program
DX: D64.9 Anemia, unspecified (principal); R06.00 Dyspnea, unspecified
CPT/HCPCS: 36415; 36430; 86850; 86900; 86901; 86920; 85014; 85018; J1940; P9016

== ENCOUNTER 2018-04-04 08:41 | Outpatient (REF) | payer MEDICARE, MEDICAID, SELFPAY ==
[2018-04-04 10:20] LABS: HCT 29.5 % (36.0-46.0); HGB 9.4 g/dL (12.0-15.5)
== END 2018-04-04 09:01 ==
LOC: LBN 08:41
PROVIDERS: PCP Student in an Organized Health Care Education/Training Program; Visit Provider Student in an Organized Health Care Education/Training Program
DX: D64.9 Anemia, unspecified (principal); N18.6 End stage renal disease
CPT/HCPCS: 85014; 85018

== ENCOUNTER 2018-04-30 02:20 | Emergency (ER) | payer MEDICARE, MEDICAID, SELFPAY ==
[2018-04-30] VITALS (92 sets, daily range): BP systolic 95–142; BP diastolic 36–88; PULSE 62–79; RESP 12–30; TEMP 36.6–36.9; O2SAT 87–100
--- NOTE | 2018-04-30 02:48 | W.ED.GENAD ---
Discharge Plan Disposition Patient Disposition: [facility] Condition: Serious Discharge Details Chief Complaint: Dizzy/Sync Clinical Impression: Pulmonary hypertension, Acute non-ST elevation myocardial infarction (NSTEMI) Primary Care Provider: Aury Melissa ED Provider: Fernando Monae Home Meds and New Rx's Prescriptions: No Action Eliquis 5 mg tablet 5 mg PO BID Qty: 60 RF: 11 albuterol sulfate 2.5 mg /3 mL (0.083 %) solution for nebulization 2.5 mg IH Q4H PRN (Reason: shortness of breath or wheezing) Qty: 180 RF: 0 compressor, for nebulizer device .ROUTE .MEDSUPPLY Qty: 1 RF: 0 Metamucil (sugar) powder 1 tsp PO BID RF: 0 Shingrix (PF) 50 mcg/0.5 mL suspension for reconstitution 50 mcg IM ONCE Qty: 1 RF: 0 Oxygen EACH NS PRN Qty: 1 RF: 0 acetaminophen 325 MG tablet 650 mg PO Q6H PRN RF: 0 atorvastatin 40 MG tablet 40 mg PO DAILY Qty: 90 RF: 3 allopurinol 100 mg tablet 100 mg PO DAILY Qty: 90 RF: 3 Anoro Ellipta 62.5-25 mcg/actuation blister with device 1 inh IH DAILY RF: 0 albuterol sulfate 90 mcg/actuation HFA aerosol inhaler 2 inh IH Q4H PRNRF: 0 Natalie-Stanley 0.8 mg tablet 1 tab PO DAILY RF: 0 sildenafil (antihypertensive) 20 mg tablet 20 mg PO TID RF: 0 packed RBC See Rx Instructions .ROUTE .COMPLEX Qty: 1 RF: 1 sennosides-docusate sodium [Senna Laxative-Stool Softener] 8.6-50 mg tablet 1 tab PO QHS PRNRF: 0 midodrine 2.5 mg tablet 2.5 mg PO TID RF: 0 ferrous sulfate [FeroSul] 325 MG tablet 650 mg PO DAILY RF: 0 calcium carbonate 500 MG tablet,chewable 1 tab PO TID RF: 0 Tyvaso 1.74 mg/2.9 mL (0.6 mg/mL) Solution For Nebulization 1 inh INHALATION QID RF: 0 Discharge Data Discharge Date/Time-TO BE ENTERED AT DEPARTURE: 04/30/18 12:52 Medical Decision Making <Donn Dumont MD - Last Filed: 05/10/18 23:07> 3:00 --77-year-old female with history of end-stage renal disease on hemodialysis, pulmonary hypertension, atrial fibrillation, COPD, chronic oxygen dependent, recently started on treprostinil (vasodilator) here this morning generally not feeling well with concern for low blood pressure when she checked at home just prior to calling EMS. Patient saturating well on usual 3.5L NC O2 and in no respiratory distress. Possible side effect of new vasodilator. Consider arrhythmia. ECG reviewed and interpreted by me: Sinus rhythm 75 bpm, right axis deviation, T wave inversion noted in lead III (no change from prior ecg 01/28/19). 3:33 -- Trop elevated 0.08 in indeterminate range. This has been elevated in past. Plan to trend. 5:00 -- Repeat trop elevated at 0.11. Called [facility] to request transfer to cardiology. ecg sent as requested. Awaiting callback. Patient reassessed: she remains stable. Still not feeling well. No CP. 6:05 -- Spoke with Dr. Davis (cardiology at [facility]): Dr. Angeles to accept patient in transfer. Awaiting bed confirmation. Recommends not starting heparin. 6:15 --repeat ECG reviewed and interpreted by me: Sinus rhythm 75 bpm, right axis deviation, no STEMI, flattening of previously noted T wave inversion in lead III, no other significant changes noted. <Fernando Monae DO - Last Filed: 04/30/18 13:36> The patient was signed out to me my my colleague Dr. Donn Dumont. We were pending transfer to [facility] at that time. A bed became available at 1205. Patient was transferred by [facility] with no incident. She was given her aspirin, as well as her iron. No complications during the patient's stay here. HPI <Donn Dumont MD - Last Filed: 05/10/18 23:07> General Mode of arrival: EMS. Date/Time Provider Initiated Documentation: 04/30/18 02:45. Limitations to Documentation: no limitations. Information obtained by: EMS. HPI Narrative: 77-year-old female with multiple medical problems including history of end-stage renal disease on hemodialysis, COPD, pulmonary hypertension, here with chief complaint of generally not feeling well. Patient notes that she has been feeling well tonight. Symptoms started around 8 PM yesterday. Symptoms have persisted. Patient states it is difficult for her to describe how she is feeling but that she just does not feel well, at times she feels lightheaded. Most concerning to her is that her blood pressure was 89/50 when she checked it around 130 this morning. Patient notes she recently started a new medicine for her pulmonary hypertension about 2 weeks ago. She believes that this medication may be causing her current symptoms. Patient notes that she feels worse when lying down. Patient denies chest pain. Of note, patient is on a fluid restricted diet -no more than 32 ounces a day. Patient is due for dialysis at 7 AM. Related Data Home Medications Medication Instructions Recorded Confirmed calcium carbonate 1 tab PO TID 06/15/16 04/30/18 ferrous sulfate [FeroSul] 650 mg PO DAILY 06/15/16 04/30/18 acetaminophen 650 mg PO Q6H PRN tab-cap 11/12/16 04/30/18 atorvastatin 40 mg PO DAILY #90 tab-cap 09/13/17 04/30/18 psyllium seed (sugar) oral powder 1 tsp PO BID gm 10/31/17 04/30/18 varicella-zoster glycoE [id number] 50 mcg IM ONCE #1 each 11/07/17 03/28/18 adj(PF) 50 mcg/0.5 mL IM susp, kit Eliquis 5 mg tablet 5 mg PO BID #60 tab NS 12/16/17 04/30/18 allopurinol 100 mg tablet 100 mg PO DAILY #90 tab-cap 01/01/18 04/30/18 albuterol sulfate HFA 90 2 inh IH Q4H PRN 01/07/18 04/30/18 mcg/actuation aerosol inhaler umeclidinium 62.5 mcg-vilanterol 1 inh IH DAILY 01/07/18 04/30/18 25 mcg/actuation powdr for inhalation albuterol sulfate 2.5 mg/3 mL 2.5 mg IH Q4H PRN #180 ml 01/29/18 03/28/18 (0.083 %) solution for nebulization compressor, for nebulizer #1 each 01/29/18 03/28/18 vitamin B complex-vitamin C-folic 1 tab PO DAILY 02/24/18 04/30/18 acid 0.8 mg tablet sildenafil (antihypertensive) 20 20 mg PO TID 03/14/18 04/30/18 mg tablet packed RBC See Rx Instructions .ROUTE 03/30/18 .COMPLEX #1 unit treprostinil [Tyvaso] 1 inh INHALATION QID 04/30/18 04/30/18 midodrine 2.5 mg tablet 2.5 mg PO TID tab 05/05/18 sennosides 8.6 mg-docusate sodium 1 tab PO QHS PRN 05/05/18 50 mg tablet Previous Rx's Medication Instructions Recorded atorvastatin 40 mg PO DAILY #90 tab-cap 09/13/17 varicella-zoster glycoE [id number] 50 mcg IM ONCE #1 each 11/07/17 adj(PF) 50 mcg/0.5 mL IM susp, kit Eliquis 5 mg tablet 5 mg PO BID #60 tab NS 12/16/17 allopurinol 100 mg tablet 100 mg PO DAILY #90 tab-cap 01/01/18 albuterol sulfate 2.5 mg/3 mL 2.5 mg IH Q4H PRN #180 ml 01/29/18 (0.083 %) solution for nebulization compressor, for nebulizer #1 each 01/29/18 packed RBC See Rx Instructions .ROUTE 03/30/18 .COMPLEX #1 unit Allergies Allergy/AdvReac Type Severity Reaction Status Date / Time morphine AdvReac Intermediate Nausea Verified 04/30/18 02:46 paper tape Allergy Unknown rash Uncoded 04/30/18 02:46 General Stated Complaint: Dizzy/Sync FOREIGN: 3 Review of Systems <Donn Dumont MD - Last Filed: 05/10/18 23:07> Review of Systems All systems reviewed & are unremarkable except as noted in HPI and below Constitutional Denies fever(s) Cardiovascular Denies chest pain, Denies diaphoresis, Denies syncope, Denies pedal edema and Denies palpitations Gastrointestinal Reports abdominal pain (chronic and unchanged) and Denies vomiting Integumentary/Breasts Denies rash Neurologic Denies syncope Endocrine Denies palpitations PFSH <Donn Dumont MD - Last Filed: 05/10/18 23:07> Medical History Diabetes (Chronic) H/O echocardiogram (Inactive) ASCVD (arteriosclerotic cardiovascular disease) Atrial fibrillation CHF (congestive heart failure) Diverticulitis Surgical History Hx of cardiac catheterization (Acute 03/04/18) Carotid endarterectomy EGD w/ BX (03/28/12) Ligation of fallopian tube Vascular Shunt colonscopy w/ bx (03/28/12) hemodialysis shunt (09/28/16) radical nephrectomy left (11/02/16) Family History Mother Essential hypertension Father Heart disease Myocardial infarction Sister Neoplasm Diabetes Social History Smoking/Tobacco Use Status: Former Tobacco Use Quit Date: 02/11/89 Pack-years: 2 Alcohol Intake: former Drug use: Never Substance use type: does not use What type of physical activity do you participate in: none Do you feel safe at home: Yes Do you feel safe in your relationship?: Yes Exam <Donn Dumont MD - Last Filed: 05/10/18 23:07> Const General: cooperative and no acute distress HENMT Head: normocephalic and atraumatic Mouth: mucous membranes dry Eyes Conjunctivae: normal conjunctivae Sclera: normal sclerae Neck Neck: trachea midline and supple Resp Auscultation: clear to auscultation bilaterally, no rales, no rhonchi and no wheezes Cardio Jugular venous pressure: no JVD Rate: regular rate and not tachycardic Rhythm: regular rhythm Heart Sounds: murmur systolic II/ GI Palpation: soft, not firm, no guarding, no masses, not rigid and tender (diffuse, mild (patient notes chronic)) Skin General skin exam: no rashes or lesions noted and pallor Neuro General: alert, awake, oriented x3 and tone normal Extrem General: no calf tenderness and no edema Psych Appearance: grossly normal Mental Status: mental status grossly normal Speech and Movement: speech and movement normal Course <Donn Dumont MD - Last Filed: 05/10/18 23:07> Vital Signs Temperature 36.9 C 04/30/18 02:26 Pulse 75 04/30/18 02:26 Respiratory Rate 15 04/30/18 02:26 Blood Pressure 112/88 04/30/18 02:26 Pulse Oximetry 99 04/30/18 02:26 Temperature 36.9 C 04/30/18 02:26 Temperature Source Skin 04/30/18 02:26 Pulse 75 04/30/18 02:26 Respiratory Rate 15 04/30/18 02:26 Respiratory Effort 04/30/18 02:47 Blood Pressure 112/88 04/30/18 02:26 Blood Pressure Position Sitting 04/30/18 02:26 Pulse Oximetry 99 04/30/18 02:26 Oxygen Delivery Method Nasal Cannula 04/30/18 02:26 Oxygen Flow Rate 3.5 04/30/18 02:26 Critical Care Time <Donn Dumont MD - Last Filed: 05/10/18 23:07> Critical Care Time: Yes Total Critical Care Time: 45 Attestation: I spent greater than 45 minutes addressing this patient's immediate life threats, this time includes interpretation of diagnostics, critical decision making, consultation with experts.
[2018-04-30 02:53] LABS: Abs Immature Grans 0.05 k/cumm (0.0-0.09); Absolute Basophil Count 0.08 k/cumm (0.0-0.2); Absolute Eosinophil Count 0.14 k/cumm (0.0-0.7); Absolute Lymphocyte Count 1.58 k/cumm (1.2-3.4); Absolute Monocyte Count 0.81 k/cumm (0.11-0.7); Absolute Neutrophil Count 8.05 k/cumm (1.2-6.7); Basophils % 0.7; Eosinophils % 1.3; HCT 37.4 % (36.0-46.0); HGB 12.1 g/dL (12.0-15.5); Immature Grans % 0.5; Lymphocytes % 14.8; Mean Corp. HGB Concentration 32.4 g/dL (32.0-36.0); Mean Corpuscular Hemoglobin 30.1 pg (27.0-33.0); Mean Platelet Volume 10.2 fL (8.0-11.0); Monocytes % 7.6; Neutrophils % 75.1; Platelet Count 214 x1000/uL (130-400); RBC 4.02 m/cumm (4.00-5.20); RBC Distribution Width 16.4 % (11.7-14.6); White Blood Cell Count 10.71 k/cumm (4.4-10.8)
[2018-04-30 03:10] LABS: ALT 112 U/L (12-78); AST 97 U/L (15-37); Albumin 3.2 g/dL (3.4-5.0); Alkaline Phosphatase 109 U/L (46-116); Anion Gap 11.1 mmol/L (3-11); BUN 46 mg/dL (7-18); Bilirubin, Total 1.1 mg/dL (0.2-1.0); CO2 28.9 mmol/L (21.0-32.0); Calcium 7.8 mg/dL (8.5-10.1); Chloride 95 mmol/L (98-107); Estimated GFR 7.34 (mL/min/1.73m2); Glucose 131 mg/dL (70-100); Magnesium 1.8 mg/dL (1.8-2.4); Potassium 4.3 mmol/L (3.5-5.1); Sodium 135 mmol/L (136-145)
[2018-04-30 03:12] LABS: CREATININE 5.64 mg/dL (0.55-1.02)
[2018-04-30 03:13] LABS: Troponin I 0.08 ng/mL (0.00-0.06)
[2018-04-30 05:12] LABS: Troponin I 0.11 ng/mL (0.00-0.06)
[2018-04-30] MEDS: Aspirin 81 MG CHEW 324 MG CH (11:10)
[2018-04-30] MEDS: Ferrous Sulfate 325 MG TAB 650 MG PO (11:24)
== END 2018-04-30 12:52 | disposition short-term general hospital (02) ==
PROVIDERS: Student in an Organized Health Care Education/Training Program; Emergency Provider Student in an Organized Health Care Education/Training Program; PCP Student in an Organized Health Care Education/Training Program
DX: R42 Dizziness and giddiness (principal); I21.4 Non-ST elevation (NSTEMI) myocardial infarction; I27.20 Pulmonary hypertension, unspecified; I25.10 Atherosclerotic heart disease of native coronary artery without angina pectoris; N18.6 End stage renal disease; I12.0 Hypertensive chronic kidney disease with stage 5 chronic kidney disease or end stage renal disease; Z99.2 Dependence on renal dialysis; E11.22 Type 2 diabetes mellitus with diabetic chronic kidney disease; Z87.891 Personal history of nicotine dependence; Z99.81 Dependence on supplemental oxygen; J44.9 Chronic obstructive pulmonary disease, unspecified; I48.91 Unspecified atrial fibrillation; Z79.01 Long term (current) use of anticoagulants
CPT/HCPCS: 36415; 80053; 93005; 99285; 83735; 83880; 84484; 85025; 93010; 99284

== ENCOUNTER 2018-05-29 08:06 | Emergency (ER) | payer MEDICARE, MEDICAID, SELFPAY ==
[2018-05-29] VITALS (65 sets, daily range): BP systolic 95–136; BP diastolic 32–77; PULSE 69–101; RESP 4–35; TEMP 36.6; O2SAT 88–100
[2018-05-29] MEDS: Omnipaque 350 MG/ML 100 ML BTL IJ (08:38)
[2018-05-29] MEDS: Normal Saline Flush 10 ML SYR IVP (08:39)
--- NOTE | 2018-05-29 08:39 | DI.CT_ITS ---
SYMPTOM/DIAGNOSIS: FELL, HIT HEAD,MIDLINE NECK PAIN, ABD PAIN, CHEST PAIN, SOB, ON ELIQUIS NONCONTRAST HEAD CT: A noncontrast cranial CT was performed. There is mild generalized cerebral atrophy. No calvarial fracture identified. Orbital structures appear intact. Temporal bone structures appear intact with incidental fluid in a few left mastoid air cells. No evidence of acute intracranial hemorrhage, mass effect or midline shift. CONCLUSION: No evidence of acute intracranial injury. CERVICAL SPINE CT: CT examination of the cervical spine was performed utilizing multi slice acquisition and multi planar reconstruction. No cervical fracture identified. Mild degenerative changes noted. No evidence of facet dislocation. Tracheal laryngeal structures appear intact. No cervical mass or adenopathy is seen. CONCLUSION: No evidence of acute cervical fracture. CHEST/ABDOMEN/PELVIC CT: CT examination of the chest, abdomen and pelvis was performed with intravenous infusion of 100 cc's of Omnipaque 350. There are fibrotic changes noted in the lung bases with minimal honey combing. No vascular injury identified in the chest. No evidence of pulmonary embolic disease. Mild prominence of pretracheal lymph nodes noted which is nonspecific but a little more easily seen than on previous chest CT of 01/28/18, maximal selene diameter of about 26 mm. No focal consolidation. No pneumothorax or pleural effusion. No pulmonary mass identified. Cardiomegaly is noted. Trace pericardial effusion. Liver is mildly enlarged. There is cholelithiasis without biliary dilatation. Pancreas is unremarkable. Spleen is unremarkable. Prior left nephrectomy noted, atrophic appearance of the right kidney. Patient is reportedly on dialysis. Adrenals are unremarkable. Abdominal aorta is of normal diameter. No major vascular abnormality is seen. No evidence of intra-abdominal hemorrhage. Small quantity of free fluid noted in the pelvis. Appendix appears normal. No evidence of bowel injury or bowel obstruction. No gross abdominal or pelvic adenopathy. CONCLUSION: No evidence of acute injury of the chest, abdomen or pelvis. Additional findings as described above.
--- NOTE | 2018-05-29 09:05 | ED.GENADUL_ITS ---
Discharge Plan Disposition Patient Disposition: OTHER Condition: Stable Discharge Details Chief Complaint: Trauma Clinical Impression: Syncope, Acute neck pain, Weakness Primary Care Provider: Aury Melissa ED Provider: Fernando Monae Home Meds and New Rx's Prescriptions: No Action Eliquis 5 mg tablet 5 mg PO BID Qty: 60 RF: 11 albuterol sulfate 2.5 mg /3 mL (0.083 %) solution for nebulization 2.5 mg IH Q4H PRN (Reason: shortness of breath or wheezing) Qty: 180 RF: 0 compressor, for nebulizer device .ROUTE .MEDSUPPLY Qty: 1 RF: 0 Metamucil (sugar) powder 1 tsp PO BID RF: 0 Oxygen EACH NS PRN Qty: 1 RF: 0 acetaminophen 325 MG tablet 650 mg PO Q6H PRN RF: 0 atorvastatin 40 MG tablet 40 mg PO DAILY Qty: 90 RF: 3 allopurinol 100 mg tablet 100 mg PO DAILY Qty: 90 RF: 3 Anoro Ellipta 62.5-25 mcg/actuation blister with device 1 inh IH DAILY RF: 0 albuterol sulfate 90 mcg/actuation HFA aerosol inhaler 2 inh IH Q4H PRNRF: 0 sildenafil (antihypertensive) 20 mg tablet 20 mg PO TID RF: 0 packed RBC See Rx Instructions .ROUTE .COMPLEX Qty: 1 RF: 1 sennosides-docusate sodium [Senna Laxative-Stool Softener] 8.6-50 mg tablet 1 tab PO QHS PRNRF: 0 midodrine 2.5 mg tablet 2.5 mg PO TID RF: 0 ferrous sulfate [FeroSul] 325 MG tablet 650 mg PO DAILY RF: 0 calcium carbonate 500 MG tablet,chewable 1 tab PO TID RF: 0 Tyvaso 1.74 mg/2.9 mL (0.6 mg/mL) Solution For Nebulization 1 inh INHALATION QID RF: 0 Nephro-Stanley 0.8 mg Tablet 1 tab PO DAILY RF: 0 Discharge Data Discharge Date/Time-TO BE ENTERED AT DEPARTURE: 05/29/18 15:45 Medical Decision Making This is a 78-year-old female with past medical history of severe pulmonary hypertension, cardiac disease, dialysis, nephrectomy, Eliquis use for A. fib, COPD, who presents today for evaluation of syncope, and trauma to her scalp. Initial EMS evaluation demonstrate hypoxemia in the 70s, however she was not on her chronic home oxygen. Recent dialysis was yesterday. Exam demonstrates no focal neurologic deficits but she has notable bruise and swelling over forehead, mild cervical spine pain, mild generalized chest and abdominal pain. No other signs of significant deformity. With the patient's syncope, mechanism, and physical exam and concerned for acute intracranial bleed, due to the patient's age and risk factors we will get a CT scan of the head neck chest abdomen and pelvis. Perform laboratory evaluation, gentle rehydration, and cardiac evaluation. I do not think CT Shanell was indicated at this time as the patient is chronically on Eliquis and has no history of PEs. Stroke is on the differential but less likely with no current focal neurologic deficits. 10:[address] scan of the head neck chest abdomen and pelvis have returned negative for any acute process. No evidence of acute bleed or fracture per radiology. Laboratory workup demonstrates slightly lower than normal hemoglobin at 10, renal function is elevated as expected with her dialysis, electrolytes are within normal limits. ProBNP is lower than normal at 21,000, troponin is 0.09, which is near her baseline EKG is benign at this time. With a negative CT scan of the neck we did go to clear the C-spine, however after removing the collar the patient still has persistent and notable midline C-spine tenderness. She demonstrates no weakness of the upper extremities, no saddle anesthesia, no weakness lower extremities. No numbness or tingling. Signs and symptoms at this time are clinically inconsistent with anterior or central cord syndrome. However because of the persistent midline neck pain we will place an [place] collar. With the patient's notable cardiac disease, history of severe pulmonary hypertension being notably positive on the [place] syncope rule, in addition to her continued notable midline cervical spine tenderness, do feel that admission for observation, echo, serial troponins and EKGs is certainly reasonable and indicated. Because of the patient's dialysis needs I have contacted [facility], I spoke with the current on-call medical policy specialist, who at this point states that because of bed capacity, the fact that the patient would merely be on observation status, he does not think that the patient should be transferred here at this time, and recommends transferring to another outlying facility. The entirety of the patient's clinical scenario including the traumatic component, her medical component, and her history were discussed with him. We will recheck to the [facility]. 11:35 AM The [facility] is currently not accepting any patients at this time, and the patient will be put on the 24-48-hour list. We contacted [facility], they are also not excepting and will put the patient on the list. I did speak with our hospitalist here, and we do not have any telemetry beds or dialysis capabilities. We are currently reaching out to [facility] in [facility]. 1:06 PM I have discussed the case with the physician , he agrees to accept the patient to [facility] for further medical management. Patient will be transferred by [facility]. I have extensively reviewed the treatment plan with the patient. I have addressed all patient concerns at this time. I have also discussed the plan with the admitting physician and they agree with the current assessment and plan and have agreed to assume responsibility for the patient. All parties demonstrate verbal understanding and agreement with our assessment and plan at this time. At time of transfer the patient was reassessed and continued to demonstrate current medical stability. No signs of acute respiratory distress requiring intubation, hemodynamic instability requiring pressor support, or rapidly declining mental status. The patient is stable for transport. EKG 8: 18 Rate 83, intervals normal, sinus rhythm, no significant ST elevations or depressions, no T wave inversions, small Q wave in lead III. No evidence of STEMI. No evidence of right heart strain. Exam(s) a CT:CT chest/abd/pel w a CT:CT head & cervical spine wo SYMPTOM/DIAGNOSIS: FELL, HIT HEAD,MIDLINE NECK PAIN, ABD PAIN, CHEST PAIN, SOB, ON ELIQUIS NONCONTRAST HEAD CT: A noncontrast cranial CT was performed. There is mild generalized cerebral atrophy. No calvarial fracture identified. Orbital structures appear intact. Temporal bone structures appear intact with incidental fluid in a few left mastoid air cells. No evidence of acute intracranial hemorrhage, mass effect or midline shift. CONCLUSION: No evidence of acute intracranial injury. CERVICAL SPINE CT: CT examination of the cervical spine was performed utilizing multi slice acquisition and multi planar reconstruction. No cervical fracture identified. Mild degenerative changes noted. No evidence of facet dislocation. Tracheal laryngeal structures appear intact. No cervical mass or adenopathy is seen. CONCLUSION: No evidence of acute cervical fracture. CHEST/ABDOMEN/PELVIC CT: CT examination of the chest, abdomen and pelvis was performed with intravenous infusion of 100 cc's of Omnipaque 350. There are fibrotic changes noted in the lung bases with minimal honey combing. No vascular injury identified in the chest. No evidence of pulmonary embolic disease. Mild prominence of pretracheal lymph nodes noted which is nonspecific but a little more easily seen than on previous chest CT of 01/28/18, maximal selene diameter of about 26 mm. No focal consolidation. No pneumothorax or pleural effusion. No pulmonary mass identified. Cardiomegaly is noted. Trace pericardial effusion. Liver is mildly enlarged. There is cholelithiasis without biliary dilatation. Pancreas is unremarkable. Spleen is unremarkable. Prior left nephrectomy noted, atrophic appearance of the right kidney. Patient is reportedly on dialysis. Adrenals are unremarkable. Abdominal aorta is of normal diameter. No major vascular abnormality is seen. No evidence of intra-abdominal hemorrhage. Small quantity of free fluid noted in the pelvis. Appendix appears normal. No evidence of bowel injury or bowel obstruction. No gross abdominal or pelvic adenopathy. CONCLUSION: No evidence of acute injury of the chest, abdomen or pelvis. Additional findings as described above. HPI General Date/Time Provider Initiated Documentation: 05/29/18 08:15 . HPI Narrative: This is a 78-year-old female with an extensive past medical history of nephrectomy, severe renal disease, pulmonary fibrosis and COPD, A. fib on Eliquis, chronic O2 use, dialysis, COPD, minimal urine output, who presents today for evaluation of fall and lightheadedness. Patient states that this morning she was not feeling so well, felt mildly malaise, while she was not feeling well she sat down, next thing she noticed she was on the ground. She had hit her head. She does not recall the event. When EMS initially arrived her O2 was in the 70s, however she is normally on 2 L of oxygen but was not at that time. She felt notably weak after this event and did have some difficulty getting up. She complained of pain in her head, neck, difficulty breathing, and some mild generalized abdominal and chest pain as well after the fall. She denies any focal numbness tingling or weakness. She denies any vision changes. She denies any vomiting or diarrhea. She does make occasional urine denies any recent dysuria. She has no other complaints or modifying factors at this time. Last dialysis was yesterday. Her regular dry weight 62 kg. No other complaints or modifying factors at this time Related Data Home Medications Medication Instructions Recorded Confirmed calcium carbonate 1 tab PO TID 06/15/16 05/29/18 ferrous sulfate [FeroSul] 650 mg PO DAILY 06/15/16 05/29/18 acetaminophen 650 mg PO Q6H PRN tab-cap 11/12/16 05/29/18 atorvastatin 40 mg PO DAILY #90 tab-cap 09/13/17 05/29/18 psyllium seed (sugar) oral powder 1 tsp PO BID gm 10/31/17 05/14/18 Eliquis 5 mg tablet 5 mg PO BID #60 tab NS 12/16/17 05/29/18 allopurinol 100 mg tablet 100 mg PO DAILY #90 tab-cap 01/01/18 05/29/18 albuterol sulfate HFA 90 2 inh IH Q4H PRN 01/07/18 05/29/18 mcg/actuation aerosol inhaler umeclidinium 62.5 mcg-vilanterol 1 inh IH DAILY 01/07/18 05/29/18 25 mcg/actuation powdr for inhalation albuterol sulfate 2.5 mg/3 mL 2.5 mg IH Q4H PRN #180 ml 01/29/18 05/29/18 (0.083 %) solution for nebulization compressor, for nebulizer #1 each 01/29/18 05/14/18 sildenafil (antihypertensive) 20 20 mg PO TID 03/14/18 05/29/18 mg tablet packed RBC See Rx Instructions .ROUTE 03/30/18 05/14/18 .COMPLEX #1 unit treprostinil [Tyvaso] 1 inh INHALATION QID 04/30/18 05/29/18 midodrine 2.5 mg tablet 2.5 mg PO TID tab 05/05/18 05/29/18 sennosides 8.6 mg-docusate sodium 1 tab PO QHS PRN 05/05/18 05/29/18 50 mg tablet B complex-vitamin C-folic acid 1 tab PO DAILY 05/29/18 05/29/18 [Nephro-Stanley] Previous Rx's Medication Instructions Recorded atorvastatin 40 mg PO DAILY #90 tab-cap 09/13/17 Eliquis 5 mg tablet 5 mg PO BID #60 tab NS 12/16/17 allopurinol 100 mg tablet 100 mg PO DAILY #90 tab-cap 01/01/18 albuterol sulfate 2.5 mg/3 mL 2.5 mg IH Q4H PRN #180 ml 01/29/18 (0.083 %) solution for nebulization compressor, for nebulizer #1 each 01/29/18 packed RBC See Rx Instructions .ROUTE 03/30/18 .COMPLEX #1 unit Allergies Allergy/AdvReac Type Severity Reaction Status Date / Time morphine AdvReac Intermediate Nausea Verified 05/29/18 08:58 paper tape Allergy Unknown rash Uncoded 05/29/18 08:58 General Stated Complaint: Trauma FOREIGN: 2 Review of Systems Review of Systems All systems reviewed & are unremarkable except as noted in HPI and below PFSH Medical History Orthostatic hypotension (Chronic) COPD (chronic obstructive pulmonary disease) with emphysema (Chronic) Pulmonary hypertension (Chronic) Renal cell carcinoma of left kidney (Resolved 09/19/16) Essential hypertension (Chronic 06/06/16) Diverticulosis (Chronic 06/06/16) Atrial fibrillation (Chronic) Diabetes (Chronic) H/O echocardiogram (Inactive) ASCVD (arteriosclerotic cardiovascular disease) Atrial fibrillation CHF (congestive heart failure) Diverticulitis Surgical History Hx of cardiac catheterization (Acute 03/04/18) Carotid endarterectomy EGD w/ BX (03/28/12) Ligation of fallopian tube Vascular Shunt colonscopy w/ bx (03/28/12) hemodialysis shunt (09/28/16) radical nephrectomy left (11/02/16) Social History Smoking/Tobacco Use Status: Former Tobacco Use Quit Date: 02/11/89 Pack-years: 2 Alcohol Intake: former Drug use: Never Substance use type: does not use Caregiver/Support person: No Number of Children: 2 Communication Needs: None What type of physical activity do you participate in: none Do you feel safe at home: Yes Do you feel safe in your relationship?: Yes Exam Narrative Exam Narrative: 1.Const: Well-nourished, Well-developed, appearing stated age 2.Eyes: PERRL, no conjunctival injection, and symmetrical lids. 3.ENT: Notable contusion to the forehead, there is no evidence of raccoon eyes, calvillo sign, CSF rhinorrhea, mastoid tenderness, cranial crepitus, hemotympanum, exophthalmos, or hyphema. Patient demonstrates intact dentition with no signs of tooth avulsion or fracture, no signs of jaw deformity, no evidence of a LeFort's fracture, with an intact palate, nose and orbital region. There is no evidence of a nasal septal hematoma. No proptosis. Jaw closes symmetrically. Airway is clear. 4.CVS: Regular rate and rhythm, Normal s1 and s2. No murmurs, carotid bruits, rubs, or gallops. Radial pulses 2+ bilaterally and symmetric. Dorsalis pedis pulses 2+ bilaterally and symmetric. 2+ capillary refill. No evidence of distant heart sounds. No extremity edema. No evidence of gross hemorrhage. 5.RESP: Unlabored respiratory effort however the patient demonstrates normal oxygen saturations. Reduced breath sounds, mild wheezes throughout. No significant bruising or signs of severe trauma. 6.GI: Soft,Nondistended, No hepatosplenomegaly. No guarding or rebound. Mild tenderness throughout, particularly over the right upper quadrant. 7.MSK: Extremities w/o deformity or ttp No cyanosis or clubbing, Normal movement of all extremities. Notable bruising over the forehead. Extremities are otherwise atraumatic. No signs of active bleeding. No gross deformities or discolorations or lesions. Tolerates full range of motion of extremities without tenderness. All compartments of upper and lower extremities are soft with no tenderness. Vascular exam demonstrates brisk capillary refill and intact pulses in all extremities. Pelvic exam demonstrates a stable pelvis, nontender to lateral compression and palpation of symphysis pubis.. No clinical evidence of significant musculoskeletal trauma. 8.Skin: Warm, Dry. No rashes or lesions. 9.Neuro: wet pour mixer II-XII grossly intact. Sensation grossly intact, no focal neurologic deficits. All 6 cardinal planes of vision are fully intact. No omkar dence of rotatory or vertical nystagmus. The patient demonstrated a normal [id number], good dexterity. There was no evidence of dysdiadochokinesia. Patient was able to ambulate without difficulty. There was no wide-based gait. Romberg, and [id number] are both normal on testing. Sensation was intact bilaterally as well as muscle strength bilaterally for all extremities. Patient was able to verbalize butter cup with no slurring, or miss pronunciation. 10.Psych: (AAO) x3. Appropriate mood and affect Course Vital Signs Temperature 36.6 C 05/29/18 08:08 Pulse 80 05/29/18 08:08 Respiratory Rate 22 05/29/18 08:08 Blood Pressure 132/77 05/29/18 08:08 Pulse Oximetry 99 05/29/18 08:08 Temperature 36.6 C 05/29/18 08:08 Temperature Source Temporal Artery Scan 05/29/18 08:08 Pulse 80 05/29/18 08:08 Respiratory Rate 22 05/29/18 08:08 Blood Pressure 132/77 05/29/18 08:08 Blood Pressure Position Sitting 05/29/18 08:08 Pulse Oximetry 99 05/29/18 08:08 Oxygen Delivery Method Aerosol Mask 05/29/18 08:08 Oxygen Flow Rate 2 05/29/18 08:08 Pain Level 10 05/29/18 08:08
[2018-05-29 09:09] LABS: Abs Immature Grans 0.03 k/cumm (0.0-0.09); Absolute Basophil Count 0.04 k/cumm (0.0-0.2); Absolute Eosinophil Count 0.08 k/cumm (0.0-0.7); Absolute Lymphocyte Count 0.91 k/cumm (1.2-3.4); Absolute Monocyte Count 0.46 k/cumm (0.11-0.7); Basophils % 0.5; Eosinophils % 1.1; HCT 31.9 % (36.0-46.0); Immature Grans % 0.4; Lymphocytes % 12.1; Mean Corp. HGB Concentration 31.3 g/dL (32.0-36.0); Mean Corpuscular Hemoglobin 29.3 pg (27.0-33.0); Mean Corpuscular Volume 93.5 fL (80-95); Mean Platelet Volume 10.2 fL (8.0-11.0); Monocytes % 6.1; Neutrophils % 79.8; Platelet Count 200 x1000/uL (130-400); RBC 3.41 m/cumm (4.00-5.20); RBC Distribution Width 16.7 % (11.7-14.6); White Blood Cell Count 7.52 k/cumm (4.4-10.8)
[2018-05-29] MEDS: Normal Saline 500 ML 1000 ML IV (09:15)
[2018-05-29 09:22] LABS: INR 1.1 (0.9-1.1); PTT Activated 24.2 sec (21.0-31.4); Prothrombin Time 11.1 sec (9.3-11.0)
[2018-05-29 09:38] LABS: ALT 77 U/L (12-78); AST 85 U/L (15-37); Alkaline Phosphatase 68 U/L (46-116); Anion Gap 6.5 mmol/L (3-11); BUN 27 mg/dL (7-18); Bilirubin, Total 0.7 mg/dL (0.2-1.0); CO2 31.5 mmol/L (21.0-32.0); Calcium 8.4 mg/dL (8.5-10.1); Chloride 95 mmol/L (98-107); Estimated GFR 12.18 (mL/min/1.73m2); Glucose 119 mg/dL (70-100); NT-proBNP 21400 pg/mL; Potassium 3.5 mmol/L (3.5-5.1); Sodium 133 mmol/L (136-145); TSH (W/Ref FT4) 2.24 uIU/mL (0.358-3.74); Total Protein 6.5 g/dL (6.4-8.2)
[2018-05-29 09:40] LABS: CREATININE 3.63 mg/dL (0.55-1.02)
[2018-05-29 09:42] LABS: Troponin I 0.09 ng/mL (0.00-0.06)
[2018-05-29] MEDS: Lidocaine 5% Patch 1 PATCH TP (09:50)
[2018-05-29] MEDS: Acetaminophen 500 MG TAB 1000 MG PO (14:29)
== END 2018-05-29 15:45 | disposition other institution (70) ==
PROVIDERS: Emergency Provider Student in an Organized Health Care Education/Training Program; PCP Student in an Organized Health Care Education/Training Program
DX: R55 Syncope and collapse (principal); M54.2 Cervicalgia; R53.1 Weakness; E11.9 Type 2 diabetes mellitus without complications; J44.9 Chronic obstructive pulmonary disease, unspecified; Z79.01 Long term (current) use of anticoagulants; Z87.891 Personal history of nicotine dependence
CPT/HCPCS: 36415; 74177; 80053; 96360; 99285; L0172; 70450; 71260; 72125; 83880; 84443; 84484; 85025; 85610; 85730; 99284; J3490

== ENCOUNTER 2018-06-25 18:48 | Emergency (ER) | payer MEDICARE, MEDICAID, SELFPAY ==
[2018-06-25 18:46] VITALS: BP 146/58; PULSE 77; RESP 16; TEMP 37.4; O2SAT 99
[2018-06-25 19:14] LABS: Abs Immature Grans 0.03 k/cumm (0.0-0.09); Absolute Basophil Count 0.05 k/cumm (0.0-0.2); Absolute Lymphocyte Count 1.31 k/cumm (1.2-3.4); Absolute Monocyte Count 0.49 k/cumm (0.11-0.7); Absolute Neutrophil Count 4.63 k/cumm (1.2-6.7); Basophils % 0.8; Eosinophils % 1.5; HCT 34.7 % (36.0-46.0); Immature Grans % 0.5; Lymphocytes % 19.8; Mean Corp. HGB Concentration 31.7 g/dL (32.0-36.0); Mean Corpuscular Hemoglobin 29.3 pg (27.0-33.0); Mean Corpuscular Volume 92.5 fL (80-95); Mean Platelet Volume 9.3 fL (8.0-11.0); Monocytes % 7.4; Platelet Count 200 x1000/uL (130-400); RBC 3.75 m/cumm (4.00-5.20); RBC Distribution Width 16.8 % (11.7-14.6); White Blood Cell Count 6.61 k/cumm (4.4-10.8)
[2018-06-25 19:26] LABS: INR 1.1 (0.9-1.1); PTT Activated 24.3 sec (21.0-31.4); Prothrombin Time 11.3 sec (9.3-11.0)
--- NOTE | 2018-06-25 20:43 | W.ED.GENAD ---
Discharge Plan Disposition Patient Disposition: HOME Condition: Improving Discharge Details Chief Complaint: Vascular Clinical Impression: Hemorrhage of arteriovenous fistula Primary Care Provider: Aury Melissa ED Provider: Wade Puente Home Meds and New Rx's Prescriptions: Continued albuterol sulfate 2.5 mg /3 mL (0.083 %) solution for nebulization 2.5 mg IH Q4H PRN (Reason: shortness of breath or wheezing) Qty: 180 RF: 0 compressor, for nebulizer device .ROUTE .MEDSUPPLY Qty: 1 RF: 0 Metamucil (sugar) powder 1 tsp PO BID RF: 0 Oxygen EACH NS PRN Qty: 1 RF: 0 acetaminophen 325 MG tablet 650 mg PO Q6H PRN RF: 0 atorvastatin 40 MG tablet 40 mg PO DAILY Qty: 90 RF: 3 allopurinol 100 mg tablet 100 mg PO DAILY Qty: 90 RF: 3 Anoro Ellipta 62.5-25 mcg/actuation blister with device 1 inh IH DAILY RF: 0 albuterol sulfate 90 mcg/actuation HFA aerosol inhaler 2 inh IH Q4H PRNRF: 0 sildenafil (antihypertensive) 20 mg tablet 20 mg PO TID RF: 0 sennosides-docusate sodium [Senna Laxative-Stool Softener] 8.6-50 mg tablet 1 tab PO QHS PRNRF: 0 midodrine 2.5 mg tablet 2.5 mg PO TID RF: 0 ferrous sulfate [FeroSul] 325 MG tablet 650 mg PO DAILY RF: 0 calcium carbonate 500 MG tablet,chewable 1 tab PO TID RF: 0 Nephro-Stanley 0.8 mg Tablet 1 tab PO DAILY RF: 0 Eliquis 5 mg tablet 2.5 mg PO BID RF: 0 Discharge Instructions Instructions: Blood Thinners (ED) Additional Instructions: Please leave your dressing on until your appointment tomorrow. He may continue to take your medications as prescribed and if you notice any severe worsening of bleeding, abnormal bruising, or other concerns please return immediately to the emergency department for reassessment Referrals: Aury Melissa DO [Primary Care Provider] - (Please keep your specialty appointment and follow-up with your primary care provider as needed) Discharge Data Discharge Date/Time-TO BE ENTERED AT DEPARTURE: 06/25/18 20:53 Medical Decision Making Patient presenting to the emergency department for chief complaint of bleeding from her AV fistula. Patient states that she had dialysis this morning and noted a increase of bleeding from her arterial site. This was able to finally subside after pressure. This evening when she was repairing to get ready for bed she started noticing some recurrence of bleeding that she could not control. Patient denies any abnormal bruising, other episodes of bleeding or lightheadedness syncope other symptoms. Patient has arterial spurting that is mild from the AV fistula in her left upper arm. Pressure was applied and Gunnar bandage for greater than 30 minutes with removal of this bleeding was still occurring. Placed TXA on Surgicel and covered the wound . redressed the wound with sterile gauze. Observe patient and dressing had not bled through. Patient was encouraged to keep this dressing on until tomorrow which she states that she has a follow-up appointment with [facility] already scheduled. I feel that it is appropriate to have this reevaluated tomorrow during her appointment. Return precautions were discussed. After discussion of diagnosis and plan of care patient has no further needs, questions, or concerns and states clear understanding to return to the emergency department for any worsening symptoms. Lab Data Lab results reviewed: Yes I reviewed the patient's lab results. HPI General Mode of arrival: EMS. Date/Time Provider Initiated Documentation: 06/25/18 18:56. Limitations to Documentation: no limitations. Information obtained by: patient and RN notes reviewed. History of Present Illness 78 year old F presents to the emergency department with the chief complaint of Bleeding fistula, described as similar to prior episodes, Quality is described as other (Denies pain), Patient started experiencing this minute(s) (30) and it has been constant. No relieving factors improve symptom(s), Movement worsens symptoms . Patient notes no other symptoms.. Related Data Home Medications Medication Instructions Recorded Confirmed calcium carbonate 1 tab PO TID 06/15/16 06/25/18 ferrous sulfate [FeroSul] 650 mg PO DAILY 06/15/16 06/25/18 acetaminophen 650 mg PO Q6H PRN tab-cap 11/12/16 06/25/18 atorvastatin 40 mg PO DAILY #90 tab-cap 09/13/17 06/25/18 psyllium seed (sugar) oral powder 1 tsp PO BID gm 10/31/17 06/25/18 allopurinol 100 mg tablet 100 mg PO DAILY #90 tab-cap 01/01/18 06/25/18 albuterol sulfate HFA 90 2 inh IH Q4H PRN 01/07/18 06/25/18 mcg/actuation aerosol inhaler umeclidinium 62.5 mcg-vilanterol 1 inh IH DAILY 01/07/18 06/25/18 25 mcg/actuation powdr for inhalation albuterol sulfate 2.5 mg/3 mL 2.5 mg IH Q4H PRN #180 ml 01/29/18 06/25/18 (0.083 %) solution for nebulization compressor, for nebulizer #1 each 01/29/18 06/05/18 sildenafil (antihypertensive) 20 20 mg PO TID 03/14/18 06/25/18 mg tablet midodrine 2.5 mg tablet 2.5 mg PO TID tab 05/05/18 06/25/18 sennosides 8.6 mg-docusate sodium 1 tab PO QHS PRN 05/05/18 06/25/18 50 mg tablet Nephro-Stanley 1 tab PO DAILY 05/29/18 06/25/18 Eliquis 2.5 mg PO BID 06/25/18 06/25/18 Previous Rx's Medication Instructions Recorded atorvastatin 40 mg PO DAILY #90 tab-cap 09/13/17 allopurinol 100 mg tablet 100 mg PO DAILY #90 tab-cap 01/01/18 albuterol sulfate 2.5 mg/3 mL 2.5 mg IH Q4H PRN #180 ml 01/29/18 (0.083 %) solution for nebulization compressor, for nebulizer #1 each 01/29/18 Allergies Allergy/AdvReac Type Severity Reaction Status Date / Time morphine AdvReac Intermediate Nausea Verified 05/29/18 08:58 paper tape Allergy Unknown rash Uncoded 06/25/18 18:56 General Stated Complaint: Vascular FOREIGN: 3 Review of Systems Constitutional Denies lethargy Cardiovascular Denies syncope, Denies rapid heart rate and Denies lightheadedness Integumentary/Breasts Reports as per HPI Neurologic Denies syncope Hematologic/Lymphatic Reports easy bleeding and Denies easy bruising [facility] Medical History Orthostatic hypotension (Chronic) COPD (chronic obstructive pulmonary disease) with emphysema (Chronic) Pulmonary hypertension (Chronic) Renal cell carcinoma of left kidney (Resolved 09/19/16) Essential hypertension (Chronic 06/06/16) Diverticulosis (Chronic 06/06/16) Atrial fibrillation (Chronic) Diabetes (Chronic) H/O echocardiogram (Inactive) ASCVD (arteriosclerotic cardiovascular disease) Atrial fibrillation CHF (congestive heart failure) Diverticulitis Surgical History Hx of cardiac catheterization (Acute 03/04/18) Carotid endarterectomy EGD w/ BX (03/28/12) Ligation of fallopian tube Vascular Shunt colonscopy w/ bx (03/28/12) hemodialysis shunt (09/28/16) radical nephrectomy left (11/02/16) Family History Mother Essential hypertension Father Heart disease Myocardial infarction Sister Neoplasm Diabetes Social History Smoking/Tobacco Use Status: Former Tobacco Use Quit Date: 02/11/89 Pack-years: 2 Alcohol Intake: former Drug use: Never Substance use type: does not use Caregiver/Support person: No Number of Children: 2 Communication Needs: None What type of physical activity do you participate in: none Do you feel safe at home: Yes Do you feel safe in your relationship?: Yes Exam Const General: cooperative, no acute distress and not ill appearing Orientation: alert, awake and oriented x3 HENMT Mouth: moist mucous membranes Resp Effort & Inspection: normal respiratory effort, able to speak in complete sentences and no respiratory distress Cardio Rate: regular rate Rhythm: regular rhythm Skin General skin exam: no rashes or lesions noted Neuro General: alert, awake, oriented x3, moves all extremities and no focal motor deficits Sensory Exam: no sensory deficits noted Course Vital Signs Temperature 37.4 C 06/25/18 18:46 Pulse 77 06/25/18 18:46 Respiratory Rate 16 06/25/18 18:46 Blood Pressure 146/58 H 06/25/18 18:46 Pulse Oximetry 99 06/25/18 18:46 Temperature 37.4 C 06/25/18 18:46 Temperature Source Temporal Artery Scan 06/25/18 18:46 Pulse 77 06/25/18 18:46 Respiratory Rate 16 06/25/18 18:46 Respiratory Effort Non-Labored 06/25/18 18:46 Blood Pressure 146/58 H 06/25/18 18:46 Blood Pressure Position Sitting 06/25/18 18:46 Pulse Oximetry 99 06/25/18 18:46 Oxygen Delivery Method Room Air 06/25/18 18:46 Oxygen Flow Rate 0 06/25/18 18:46 Pain Level 0 06/25/18 18:46 Lab/Test Results Lab/Test Results: Laboratory Tests Range/Units 06/25/18 06/25/18 19:00 19:00 WBC (4.4-10.8) k/cumm 6.61 RBC (4.00-5.20) m/cumm 3.75 L Hgb (12.0-15.5) g/dL 11.0 L Hct (36.0-46.0) % 34.7 L MCV (80-95) fL 92.5 MCH (27.0-33.0) pg 29.3 MCHC (32.0-36.0) g/dL 31.7 L RDW (11.7-14.6) % 16.8 H Plt Count (130-400) x1000/uL 200 MPV (8.0-11.0) fL 9.3 Immature Gran % 0.5 Neutrophils % 70.0 Lymphocytes % 19.8 Monocytes % 7.4 Eosinophils % 1.5 Basophils % 0.8 Absolute Neutrophils (1.2-6.7) k/cumm 4.63 Absolute Lymphocytes (1.2-3.4) k/cumm 1.31 Absolute Monocytes (0.11-0.7) k/cumm 0.49 Absolute Eosinophils (0.0-0.7) k/cumm 0.10 Absolute Basophils (0.0-0.2) k/cumm 0.05 PT (9.3-11.0) sec 11.3 H INR (0.9-1.1) 1.1 APTT (21.0-31.4) sec 24.3
== END 2018-06-25 20:53 | disposition home or self-care (01) ==
PROVIDERS: Emergency Provider Nurse Practitioner Family; PCP Student in an Organized Health Care Education/Training Program
DX: T82.530A Leakage of surgically created arteriovenous fistula, initial encounter (principal); I13.2 Hypertensive heart and chronic kidney disease with heart failure and with stage 5 chronic kidney disease, or end stage renal disease; N18.6 End stage renal disease; I50.9 Heart failure, unspecified; Z99.2 Dependence on renal dialysis
CPT/HCPCS: 36415; 99283; 85025; 85610; 85730

== ENCOUNTER 2018-09-10 17:21 | Emergency (ER) | payer MEDICARE, MEDICAID, SELFPAY ==
[2018-09-10] VITALS (30 sets, daily range): BP systolic 111–141; BP diastolic 38–68; PULSE 67–94; RESP 12–28; TEMP 36.5; O2SAT 93–100
--- NOTE | 2018-09-10 17:25 | ED.GENADUL_ITS ---
Discharge Plan Disposition Patient Disposition: HOME Condition: Good Discharge Details Chief Complaint: SOB Clinical Impression: COPD exacerbation, Pulmonary hypertension Primary Care Provider: Aury Melissa ED Provider: Gustavo Schmitt Home Meds and New Rx's Prescriptions: New prednisone 20 mg tablet 40 mg PO DAILY 5 Days Qty: 10 RF: 0 azithromycin 250 mg tablet 250 mg PO DAILY 4 Days Qty: 4 RF: 0 No Action albuterol sulfate 2.5 mg /3 mL (0.083 %) solution for nebulization 2.5 mg IH Q4H PRN (Reason: shortness of breath or wheezing) Qty: 180 RF: 0 (DME) compressor, for nebulizer device See Dose Instructions .ROUTE .MEDSUPPLY Qty: 1 RF: 0 zaleplon 5 mg capsule 5 mg PO DAILY MDD 10mg Qty: 10 RF: 1 Metamucil (sugar) powder 1 tsp PO BID RF: 0 Oxygen EACH NS PRN Qty: 1 RF: 0 acetaminophen 325 MG tablet 650 mg PO Q6H PRN RF: 0 atorvastatin 40 MG tablet 40 mg PO DAILY Qty: 90 RF: 3 allopurinol 100 mg tablet 100 mg PO DAILY Qty: 90 RF: 3 albuterol sulfate 90 mcg/actuation HFA aerosol inhaler 2 inh IH Q4H PRNRF: 0 sildenafil (antihypertensive) 20 mg tablet 20 mg PO TID RF: 0 Trelegy Ellipta 100-62.5-25 mcg blister with device 1 inh IH DAILY RF: 0 zolpidem 10 mg tablet 10 mg PO QHS Qty: 30 RF: 0 midodrine 2.5 mg tablet 2.5 mg PO TID Qty: 90 RF: 0 ferrous sulfate [FeroSul] 325 MG tablet 650 mg PO DAILY RF: 0 calcium carbonate 500 MG tablet,chewable 1 tab PO TID RF: 0 Nephro-Stanley 0.8 mg Tablet 1 tab PO DAILY RF: 0 Eliquis 5 mg tablet 2.5 mg PO BID RF: 0 Discharge Instructions Instructions: COPD (Chronic Obstructive Pulmonary Disease) (ED) Additional Instructions: I discussed your case with Dr. Veronica from [facility] cardiology service. She will have the pulmonary hypertension clinic call you at home tomorrow. Take medications as prescribed. Dialysis on Saturday as planned. Return to ER if you develop increasing shortness of breath, new chest pain, fever, or any other acute concern Medical Decision Making 78-year-old female presents with 2 days of worsening shortness of breath since since stopping recent 4-day trial of selexipag for pulmonary vasodilation. She has a history of severe pulmonary HTN, atrial fibrillation (on DOAC), [id number] aortic stenosis, carotid atherosclerosis s/p B/L endarterectomies, COPD on 3-4 L supplemental O2, history of RCC s/p L nephrectomy (2017), and ESRD on HD since 10/2016, dialysis today with 3 kg net weight loss. She recently began using a CPAP at night The trial of selexipag was her third trial of prostacyclin agonist medications for pulmonary vasodilatation (failing Macitentan and Tyvaso). Most recent Echo reported to have PA pressure of 98mmHg. She she has an aortic valve area of 1.2 cm. She states to me she does not want to try any further new medications including things such as intravenous Flolan. She arrives with a temp of 36.5, pulse in the 90s, blood pressure 141/68. Oxygenation is 93% on 4 L. She states to me she wishes to be DNR/DNI In addition to worsening pulmonary hypertension, differential diagnosis includes fluid overload, left sided heart distress, and atypical pneumonia. Patient had a venous blood glass, laboratories, chest x-ray performed. Venous pH 7.51, venous CO2 34. CBC with white blood cell count 7, hematocrit 34, platelets 193. BUN is 16 with a creatinine of 2.2. Slightly low potassium of 3.1. Troponin is 0.10. She has had elevated troponins the last 6 checks since 2018. Her BNP is elevated at 30,000 (range [id number] since starting dialysis). CXR with suspected LLL infiltrate, pulmonary congestion. She does have some improvement with duoneb updraft. Discussed the case and reviewed data with Dr. Veronica of [facility] cardiology. She will have the pulmonary hypertension clinic call the patient tomorrow. No indication for acute admission. She agrees with treatment of probable COPD exacerbation. Will hold on high-dose steroids to avoid too much fluid retention. She and her son understand return precautions to the ER as well as the follow-up plan. ECG Data Attestation: I personally reviewed and interpreted this ECG (s) as follows: Interpretation: Normal sinus rhythm, the rate is 86, enlarged P waves present, no ST segment elevation. HPI General Mode of arrival: ambulatory . Date/Time Provider Initiated Documentation: 09/10/18 17:21 . Limitations to Documentation: no limitations . Information obtained by: patient and family . History of Present Illness 78 year old F presents to the emergency department with the chief complaint of Shortness of breath for 2 days, described as moderate and similar to prior episodes, Quality is described as dull and constant, and is localized to the chest. Patient reports no radiation. Patient started experiencing this day(s) and it has been constant. Rest improves symptom(s), Movement worsens symptoms . Patient notes no other symptoms.; denies cough and fever/chills. Patient did receive the following treatments prior to arrival, other (Inhaler) Related Data Home Medications Medication Instructions Recorded Confirmed calcium carbonate 1 tab PO TID 06/15/16 09/10/18 ferrous sulfate [FeroSul] 650 mg PO DAILY 06/15/16 09/10/18 acetaminophen 650 mg PO Q6H PRN tab-cap 11/12/16 09/10/18 atorvastatin 40 mg PO DAILY #90 tab-cap 09/13/17 09/10/18 psyllium seed (sugar) 1 tsp PO BID gm 10/31/17 09/10/18 allopurinol 100 mg tablet 100 mg PO DAILY #90 tab-cap 01/01/18 09/10/18 albuterol sulfate 90 mcg/actuation 2 inh IH Q4H PRN 01/07/18 09/10/18 aerosol inhaler albuterol sulfate 2.5 mg IH Q4H PRN #180 ml 01/29/18 09/10/18 compressor, for nebulizer #1 each 01/29/18 08/08/18 sildenafil (antihypertensive) 20 20 mg PO TID 03/14/18 09/10/18 mg tablet Nephro-Stanley 1 tab PO DAILY 05/29/18 09/10/18 Eliquis 2.5 mg PO BID 06/25/18 09/10/18 fluticasone fur. 100 mcg-umeclid 1 inh IH DAILY 07/14/18 09/10/18 62.5 mcg-vilant 25 mcg inhalat.powder zaleplon 5 mg capsule 5 mg PO DAILY #10 cap MDD 10mg 08/08/18 09/10/18 zolpidem 10 mg tablet 10 mg PO QHS #30 tab 08/19/18 09/10/18 midodrine 2.5 mg tablet 2.5 mg PO TID #90 tab 09/02/18 09/10/18 azithromycin 250 mg PO DAILY 4 Days #4 tab 09/10/18 prednisone 40 mg PO DAILY 5 Days #10 tab 09/10/18 Previous Rx's Medication Instructions Recorded atorvastatin 40 mg PO DAILY #90 tab-cap 09/13/17 allopurinol 100 mg tablet 100 mg PO DAILY #90 tab-cap 01/01/18 albuterol sulfate 2.5 mg IH Q4H PRN #180 ml 01/29/18 compressor, for nebulizer #1 each 01/29/18 zaleplon 5 mg capsule 5 mg PO DAILY #10 cap MDD 10mg 08/08/18 zolpidem 10 mg tablet 10 mg PO QHS #30 tab 08/19/18 midodrine 2.5 mg tablet 2.5 mg PO TID #90 tab 09/02/18 azithromycin 250 mg PO DAILY 4 Days #4 tab 09/10/18 prednisone 40 mg PO DAILY 5 Days #10 tab 09/10/18 Allergies Allergy/AdvReac Type Severity Reaction Status Date / Time morphine AdvReac Intermediate Nausea Verified 09/10/18 17:30 paper tape Allergy Unknown rash Uncoded 09/10/18 17:30 General FOREIGN: 3 Review of Systems Review of Systems No fever, cough, production of sputum. Transient chest pain earlier in the day. Worsening exertional intolerance since stopping recent 4-day trial of selexipag for pulmonary vasodilatory [facility] Medical History ASCVD (arteriosclerotic cardiovascular disease) Atrial fibrillation (Chronic) Atrial fibrillation CHF (congestive heart failure) Chronic kidney disease (CKD) stage G4/A1, severely decreased glomerular filtration rate (GFR) between 15-29 mL/min/1.73 square meter and albuminuria creatinine ratio less than 30 mg/g (Chronic) COPD (chronic obstructive pulmonary disease) with emphysema (Chronic) Counseling regarding advance directives and goals of care (Acute) Diabetes (Chronic) Diverticulitis Diverticulosis (Chronic 06/06/16) Essential hypertension (Chronic 06/06/16) H/O echocardiogram (Inactive) Orthostatic hypotension (Chronic) Palliative care patient (Chronic) Pulmonary hypertension (Chronic) Renal cell carcinoma of left kidney (Resolved 09/19/16) Surgical History Carotid endarterectomy colonscopy w/ bx (03/28/12) EGD w/ BX (03/28/12) hemodialysis shunt (09/28/16) Hx of cardiac catheterization (Chronic 03/04/18) Ligation of fallopian tube radical nephrectomy left (11/02/16) Vascular Shunt Family History Mother Essential hypertension Father Heart disease Myocardial infarction Sister Neoplasm Diabetes Social History Smoking/Tobacco Use Status: Former Tobacco Use Quit Date: 02/11/89 Pack-years: 2 Alcohol Intake: former Drug use: Never Substance use type: does not use Caregiver/Support person: No Household members: none Housing: other Details: [facility], Custodial with meals available Number of Children: 2 Communication Needs: None Education Level: college Do you need help understanding health information?: Often current occupation: retired from [employer]; moved to [place] to care for grandkids; back Pets and animals: No What is your relationship status?: How often do you talk on the phone with friends or family?: three or more times per week How often do you get together with friends or relatives?: twice per week Panel score (0-1 are the most socially isolated patients): 1 What type of physical activity do you participate in: none and sedentary lifestyle Duration: < 15 minutes/day Special ramos needs: No Agree to transfusion: Yes Seatbelt use: always Water heater temp set <120 deg: Yes Working smoke detector in home: Yes Fire extinguisher in home: Yes Do you feel safe at home: Yes Do you feel safe in your relationship?: Yes Additional Social history: Was caring for her daughter's children in [place] after she retired. Diagnosed with CKD in [place] about 10 yrs ago. Moved to [facility]. Didn't see nephrology x 4 yrs. No testing done. Then saw nephrology who did renal U/S that showed cancer of L kidney. Now on dialysis. Exam Narrative Exam Narrative: GEN: awake, alert, oriented 3. Pleasant, well groomed, interactive. HEAD: Normocephalic, atraumatic ENT: Mucous membranes moist, oropharynx unremarkable, External ear exam unremarkable EYES: PERRL, EOMI NECK: Full ROM, no KEVIN, no menigismus CHEST/RESP: Nontender, diminished bilaterally CARDIOVASCULAR: RRR, soft blowing murmur, rub gamal. 2+ Rad pulse bilateral ABDOMEN: Soft, nontender, no mass. +Bowel sounds EXT: Full ROM,trace pretibial edema, no rash. L humerus fAV Fistula with + thrill Neuro: Grossly normal neurologic exam, conversant, interactive. Psych: Speech fluent, thoughts congruent, affect normal
--- NOTE | 2018-09-10 17:43 | DI.RAD_ITS ---
SYMPTOM/DIAGNOSIS: SOB, PULM HTN PA AND LATERAL UPRIGHT CHEST: There are some questionable small regions of increased density involving the left lower lobe. There is no pleural effusion or pneumothorax. The heart is top limits of normal in size. There are atherosclerotic changes involving the aorta. SUMMARY: The possibility of a left lower lobe infiltrate is raised. The findings to be correlated with the patient's clinical status.
[2018-09-10] MEDS: Albuterol/Ipratropium 3 ML UPD VIAL (17:55)
[2018-09-10 17:57] LABS: BE (Venous) 13.6 mmol/L (-3-3); HCO3 (Venous) 37 mmol/L (22-28); O2 Sat (Venous) 35 % (70-80); TCO2 (Venous) 34 mmol/L (22-29); pCO2 (Venous) 46 mm/Hg (34-47); pH (Venous) 7.51 (7.32-7.43); pO2 (Venous) 21 mm/Hg (28-44)
--- NOTE | 2018-09-10 18:29 | DI.VRAD_ITS ---
EXAM: XR Chest, 2 Views EXAM DATE/TIME: 09/10/2018 5:44 PM CLINICAL HISTORY: 78 years old, female; Shortness of breath and other: Pulmonary hypertension TECHNIQUE: Imaging protocol: XR of the chest, 2 views. COMPARISON: CR XR CHEST 2V PA LATERAL 03/11/2018 10:03 AM FINDINGS: Lungs: There is slight pulmonary vascular congestion. There is slight increased density at the left lung base and a left lower lobe infiltrate is not totally excluded. Clinical correlation is recommended. Pleural space: Unremarkable. No pleural effusion. No pneumothorax. Heart/Mediastinum: Unremarkable. No cardiomegaly. Vasculature: There are arteriosclerotic changes of the aorta. Bones/joints: There is osteopenia. IMPRESSION: Suspected left lower lobe infiltrate. Clinical correlation is recommended. Slight pulmonary vascular congestion. Osteopenia. Dictated and Authenticated by: Elio Herrera MD. Ordering:RANDAL Chen MD
[2018-09-10 18:37] LABS: Abs Immature Grans 0.04 k/cumm (0.0-0.09); Absolute Basophil Count 0.04 k/cumm (0.0-0.2); Absolute Eosinophil Count 0.07 k/cumm (0.0-0.7); Absolute Lymphocyte Count 1.65 k/cumm (1.2-3.4); Absolute Monocyte Count 0.69 k/cumm (0.11-0.7); Basophils % 0.6; HCT 34.3 % (36.0-46.0); HGB 11.1 g/dL (12.0-15.5); Immature Grans % 0.6; Lymphocytes % 23.3; Mean Corp. HGB Concentration 32.4 g/dL (32.0-36.0); Mean Corpuscular Hemoglobin 30.3 pg (27.0-33.0); Mean Corpuscular Volume 93.7 fL (80-95); Mean Platelet Volume 9.4 fL (8.0-11.0); Monocytes % 9.7; Neutrophils % 64.8; Platelet Count 193 x1000/uL (130-400); RBC 3.66 m/cumm (4.00-5.20); RBC Distribution Width 17.8 % (11.7-14.6); White Blood Cell Count 7.09 k/cumm (4.4-10.8)
[2018-09-10 19:01] LABS: ALT 74 U/L (12-78); AST 51 U/L (15-37); Albumin 3.8 g/dL (3.4-5.0); Alkaline Phosphatase 79 U/L (46-116); Anion Gap 7.3 mmol/L (3-11); BUN 16 mg/dL (7-18); Bilirubin, Total 0.9 mg/dL (0.2-1.0); CO2 33.7 mmol/L (21.0-32.0); CREATININE 2.26 mg/dL (0.55-1.02); Calcium 9.5 mg/dL (8.5-10.1); Chloride 96 mmol/L (98-107); Estimated GFR 21.04 (mL/min/1.73m2); Glucose 109 mg/dL (70-100); Magnesium 2.1 mg/dL (1.8-2.4); NT-proBNP 30586 pg/mL; Potassium 3.1 mmol/L (3.5-5.1); Sodium 137 mmol/L (136-145); Total Protein 7.8 g/dL (6.4-8.2)
[2018-09-10] MEDS: Azithromycin 250 MG TAB 500 MG PO (20:21)
[2018-09-10] MEDS: predniSONE 20 MG TAB 40 MG PO (20:21)
== END 2018-09-10 20:24 | disposition home or self-care (01) ==
PROVIDERS: Emergency Provider Emergency Medicine; PCP Student in an Organized Health Care Education/Training Program
DX: J44.1 Chronic obstructive pulmonary disease with (acute) exacerbation (principal); I27.20 Pulmonary hypertension, unspecified; I13.0 Hypertensive heart and chronic kidney disease with heart failure and stage 1 through stage 4 chronic kidney disease, or unspecified chronic kidney disease; E11.9 Type 2 diabetes mellitus without complications; I50.9 Heart failure, unspecified; N18.4 Chronic kidney disease, stage 4 (severe); I48.91 Unspecified atrial fibrillation; Z79.01 Long term (current) use of anticoagulants
CPT/HCPCS: 36415; 80053; 82805; 93005; 94640; 99285; 71046; 83735; 83880; 84484; 85025; 93010; J7512; J7620

== ENCOUNTER 2018-09-22 10:28 | Observation (INO) | payer OTHER, SELFPAY ==
[2018-09-22] VITALS (17 sets, daily range): BP systolic 101–138; BP diastolic 41–65; PULSE 71–88; RESP 9–25; TEMP 36.1–37.1; O2SAT 95–100
[2018-09-22] MEDS: Lactated Ringers 500 ML IV (10:57)
[2018-09-22 10:58] LABS: Abs Immature Grans 0.06 k/cumm (0.0-0.09); Absolute Eosinophil Count 0.08 k/cumm (0.0-0.7); Absolute Lymphocyte Count 0.99 k/cumm (1.2-3.4); Absolute Monocyte Count 0.79 k/cumm (0.11-0.7); Basophils % 0.1; Eosinophils % 0.6; HCT 35.1 % (36.0-46.0); HGB 11.3 g/dL (12.0-15.5); Immature Grans % 0.4; Lymphocytes % 7.2; Mean Corp. HGB Concentration 32.2 g/dL (32.0-36.0); Mean Corpuscular Hemoglobin 30.6 pg (27.0-33.0); Mean Corpuscular Volume 95.1 fL (80-95); Monocytes % 5.8; Neutrophils % 85.9; Platelet Count 196 x1000/uL (130-400); RBC 3.69 m/cumm (4.00-5.20); RBC Distribution Width 17.5 % (11.7-14.6)
[2018-09-22] MEDS: Normal Saline Flush 10 ML SYR IVP (10:58)
[2018-09-22 11:02] LABS: Absolute Basophil Count 0.01 k/cumm (0.0-0.2); Absolute Neutrophil Count 11.77 k/cumm (1.2-6.7)
--- NOTE | 2018-09-22 11:04 | NUR.NOTE ---
iv placed labs drawn pt on bus monitor family at bedside rNursing Note:
[2018-09-22 11:19] LABS: ALT 94 U/L (12-78); AST 56 U/L (15-37); Albumin 3.6 g/dL (3.4-5.0); Alkaline Phosphatase 82 U/L (46-116); Anion Gap 10.6 mmol/L (3-11); BUN 44 mg/dL (7-18); CO2 30.4 mmol/L (21.0-32.0); Calcium 9.1 mg/dL (8.5-10.1); Chloride 92 mmol/L (98-107); Estimated GFR 7.22 (mL/min/1.73m2); Glucose 117 mg/dL (70-100); Lipase 330 U/L (73-393); Magnesium 1.9 mg/dL (1.8-2.4); Potassium 3.7 mmol/L (3.5-5.1); Sodium 133 mmol/L (136-145); Total Protein 7.4 g/dL (6.4-8.2)
[2018-09-22 11:20] LABS: CREATININE 5.71 mg/dL (0.55-1.02); Troponin I 0.32 ng/mL (0.00-0.06)
--- NOTE | 2018-09-22 11:32 | ED.GENADUL_ITS ---
Discharge Plan Disposition Patient Disposition: [facility] INPATIENT Discharge Details Chief Complaint: Abd Prob Clinical Impression: Constipation, Ascites, Ovarian cystic mass, CKD (chronic kidney disease), Elevated troponin Primary Care Provider: Aury Melissa ED Provider: Donn Dumont Home Meds and New Rx's Prescriptions: No Action albuterol sulfate 2.5 mg /3 mL (0.083 %) solution for nebulization 2.5 mg IH Q4H PRN (Reason: shortness of breath or wheezing) Qty: 180 RF: 0 (DME) compressor, for nebulizer device See Dose Instructions .ROUTE .MEDSUPPLY Qty: 1 RF: 0 Metamucil (sugar) powder 1 tsp PO BID RF: 0 Oxygen EACH NS PRN Qty: 1 RF: 0 acetaminophen 325 MG tablet 650 mg PO Q6H PRN RF: 0 atorvastatin 40 MG tablet 40 mg PO DAILY Qty: 90 RF: 3 allopurinol 100 mg tablet 100 mg PO DAILY Qty: 90 RF: 3 albuterol sulfate 90 mcg/actuation HFA aerosol inhaler 2 inh IH Q4H PRNRF: 0 sildenafil (antihypertensive) 20 mg tablet 20 mg PO TID RF: 0 Trelegy Ellipta 100-62.5-25 mcg blister with device 1 inh IH DAILY RF: 0 zolpidem 10 mg tablet 10 mg PO QHS Qty: 30 RF: 0 midodrine 2.5 mg tablet 2.5 mg PO TID Qty: 90 RF: 0 ferrous sulfate [FeroSul] 325 MG tablet 650 mg PO DAILY RF: 0 calcium carbonate 500 MG tablet,chewable 1 tab PO TID RF: 0 Nephro-Stanley 0.8 mg Tablet 1 tab PO DAILY RF: 0 Eliquis 5 mg tablet 2.5 mg PO BID RF: 0 furosemide 40 mg Tablet 40 mg PO DIRECTED RF: 0 Trelegy Ellipta 100-62.5-25 mcg Blister With Device 1 ea INHALATION DAILY RF: 0 zolpidem [Ambien] 10 mg Tablet 5 - 10 mg PO HS RF: 0 Medical Decision Making 12:30 --78-year-old female with multiple medical problems including history of renal cell carcinoma status post nephrectomy, chronic kidney disease on dialysis (last dialysis was Saturday - did not have as scheduled today), coronary artery disease, [place] hypertension on chronic O2, currently on hospice, started on morphine for breathing difficulty last week, now with generalized abdominal discomfort and constipation for the past 4 days. Patient is tender in her upper abdomen with no peritoneal findings. She is afebrile. Family concerned that patient has been weak recently. Patient also notes that she had nausea and did vomit some dark cola colored liquid vomitus. Vomitus was nonbloody and not coffee-ground in appearance. She is had no bright red blood per rectum or melena. Initial labs were reviewed and troponin is elevated at 0.32. Troponin has been chronically elevated and this is in the setting of chronic kidney disease with a elevated creatinine of 5.7. Patient has no chest pain. Screening ECG was reviewed and interpreted by me: Sinus rhythm 70 bpm, normal axis, no ischemia, nondiagnostic. Concern for constipation secondary to opioid use. Consider other acute surgical pathology including bowel obstruction. Plan to obtain CT a/p. Patient did take antiemetic prior to arrival. I will give Pepcid 20 mg IV. Plan to treat with enema. --CT of the abdomen interpreted by radiology: CONCLUSION: 1. Mild abdominal ascites, more prominent than examination of May 2018. 2. Question interval increase in prominence of para aortic and para caval nodes, nonspecific 3. Cholelithiasis, no biliary dilatation 4. Slight interval increase in size of low attenuation presumably cystic left ovarian lesion. Pelvic ultrasound may be considered for correlation to rule out solid ovarian mass. Plan for outpatient follow - will not likely pursue given hospice. Patient reassessed after fleets enema - had small BM and feels better, less bloated. -- All results discussed with patient. Patient had second enema with soap subs and had larger BM. Now feeling much better. Nursing noting that patient much more weak and difficulty and SOB with minimal exertion. Family requesting admission. -- I spoke with Dr. Fonseca (hospitalist) who requested that I speak with physician labor relations representative for hospice regarding admission. 15:11 -- I soke with Dr. Art who will admit the patient to hospice service. She requests bridging orders be placed to the floor. Lab Data Lab results reviewed: Yes I reviewed the patient's lab results. Laboratory Tests Range/Units 09/22/18 09/22/18 10:53 10:53 WBC (4.4-10.8) k/cumm 13.70 H RBC (4.00-5.20) m/cumm 3.69 L Hgb (12.0-15.5) g/dL 11.3 L Hct (36.0-46.0) % 35.1 L MCV (80-95) fL 95.1 H MCH (27.0-33.0) pg 30.6 MCHC (32.0-36.0) g/dL 32.2 RDW (11.7-14.6) % 17.5 H Plt Count (130-400) x1000/uL 196 MPV (8.0-11.0) fL 10.0 Immature Gran % 0.4 Neutrophils % 85.9 Lymphocytes % 7.2 Monocytes % 5.8 Eosinophils % 0.6 Basophils % 0.1 Absolute Neutrophils (1.2-6.7) k/cumm 11.77 H Absolute Lymphocytes (1.2-3.4) k/cumm 0.99 L Absolute Monocytes (0.11-0.7) k/cumm 0.79 H Absolute Eosinophils (0.0-0.7) k/cumm 0.08 Absolute Basophils (0.0-0.2) k/cumm 0.01 Sodium (136-145) mmol/L 133 L Potassium (3.5-5.1) mmol/L 3.7 Chloride (98-107) mmol/L 92 L Carbon Dioxide (21.0-32.0) mmol/L 30.4 Anion Gap (3-11) mmol/L 10.6 BUN (7-18) mg/dL 44 H Creatinine (0.55-1.02) mg/dL 5.71 H* Estimated GFR/1.73 m2 (mL/min/1.73m2) 7.22 Glucose (70-100) mg/dL 117 H Calcium (8.5-10.1) mg/dL 9.1 Magnesium (1.8-2.4) mg/dL 1.9 Total Bilirubin (0.2-1.0) mg/dL 1.0 AST (15-37) U/L 56 H ALT (12-78) U/L 94 H Alkaline Phosphatase (46-116) U/L 82 Troponin I (0.00-0.06) ng/mL 0.32 H* Total Protein (6.4-8.2) g/dL 7.4 Albumin (3.4-5.0) g/dL 3.6 Lipase (73-393) U/L 330 HPI General Mode of arrival: ambulatory . Date/Time Provider Initiated Documentation: 09/22/18 10:32 . Limitations to Documentation: no limitations . Information obtained by: patient . HPI Narrative: 75-year-old female with multiple medical problems including history of coronary artery disease, atrial fibrillation, CHF, pulmonary hypertension chronic kidney disease on dialysis, last received dialysis on Saturday, COPD, chronic oxygen dependent, diabetes, diverticulitis, hypertension, here with chief complaint of constipation. Symptoms are severe. Patient notes she has not had a bowel movement for 4 days -usually has daily. She has tried enema this morning that did not help and has been using MiraLAX. Patient notes associated nausea and also vomiting up some brown liquid. This was not bloody and not described as coffee-ground. Patient notes associated generalized abdominal discomfort worse across her upper abdomen. Patient notes that she did recently start using morphine last week for her breathing difficulty. She does not typically use opioids and that she has a history of being sensitive to opioids. Related Data Home Medications Medication Instructions Recorded Confirmed calcium carbonate 1 tab PO TID 06/15/16 09/22/18 ferrous sulfate [FeroSul] 650 mg PO DAILY 06/15/16 09/22/18 acetaminophen 650 mg PO Q6H PRN tab-cap 11/12/16 09/22/18 atorvastatin 40 mg PO DAILY #90 tab-cap 09/13/17 09/22/18 psyllium seed (sugar) 1 tsp PO BID gm 10/31/17 09/22/18 allopurinol 100 mg tablet 100 mg PO DAILY #90 tab-cap 01/01/18 09/22/18 albuterol sulfate 90 mcg/actuation 2 inh IH Q4H PRN 01/07/18 09/22/18 aerosol inhaler albuterol sulfate 2.5 mg IH Q4H PRN #180 ml 01/29/18 09/22/18 compressor, for nebulizer #1 each 01/29/18 08/08/18 sildenafil (antihypertensive) 20 20 mg PO TID 03/14/18 09/22/18 mg tablet Nephro-Stanley 1 tab PO DAILY 05/29/18 09/22/18 Eliquis 2.5 mg PO BID 06/25/18 09/22/18 fluticasone fur. 100 mcg-umeclid 1 inh IH DAILY 07/14/18 09/10/18 62.5 mcg-vilant 25 mcg inhalat.powder zolpidem 10 mg tablet 10 mg PO QHS #30 tab 08/19/18 09/22/18 midodrine 2.5 mg tablet 2.5 mg PO TID #90 tab 09/02/18 09/22/18 [id number]-ybqtvlnyg-[id number] 1 ea INHALATION DAILY 09/22/18 09/22/18 [Trelegy Ellipta] furosemide 40 mg PO DIRECTED 09/22/18 09/22/18 zolpidem [Ambien] 5 - 10 mg PO HS 09/22/18 09/22/18 Previous Rx's Medication Instructions Recorded atorvastatin 40 mg PO DAILY #90 tab-cap 09/13/17 allopurinol 100 mg tablet 100 mg PO DAILY #90 tab-cap 01/01/18 albuterol sulfate 2.5 mg IH Q4H PRN #180 ml 01/29/18 compressor, for nebulizer #1 each 01/29/18 zolpidem 10 mg tablet 10 mg PO QHS #30 tab 08/19/18 midodrine 2.5 mg tablet 2.5 mg PO TID #90 tab 09/02/18 Allergies Allergy/AdvReac Type Severity Reaction Status Date / Time morphine AdvReac Intermediate Nausea Verified 09/10/18 17:30 paper tape Allergy Unknown rash Uncoded 09/10/18 17:30 General Stated Complaint: Abd Prob FOREIGN: 3 Review of Systems Constitutional Denies fever(s) Cardiovascular Denies chest pain, Denies pedal edema and Reports dyspnea (chronic, improved from recent visit for PNA) Respiratory Reports dyspnea (chronic, improved from recent visit for PNA) Gastrointestinal Reports constipation PFSH Medical History Anxiety about health (Acute) ASCVD (arteriosclerotic cardiovascular disease) Atrial fibrillation (Chronic) Atrial fibrillation CHF (congestive heart failure) Chronic kidney disease (CKD) stage G4/A1, severely decreased glomerular filtration rate (GFR) between 15-29 mL/min/1.73 square meter and albuminuria creatinine ratio less than 30 mg/g (Chronic) COPD (chronic obstructive pulmonary disease) with emphysema (Chronic) Counseling regarding advance directives and goals of care (Acute) Cyanosis (Acute) Diabetes (Chronic) Dialysis patient (Acute) Diverticulitis Diverticulosis (Chronic 06/06/16) Encounter for hospice care discussion (Acute) Essential hypertension (Chronic 06/06/16) H/O echocardiogram (Inactive) Hypoxia (Acute) Orthostatic hypotension (Chronic) Palliative care patient (Chronic) Pulmonary hypertension (Chronic) Renal cell carcinoma of left kidney (Resolved 09/19/16) Surgical History Carotid endarterectomy colonscopy w/ bx (03/28/12) EGD w/ BX (03/28/12) hemodialysis shunt (09/28/16) Hx of cardiac catheterization (Chronic 03/04/18) Ligation of fallopian tube radical nephrectomy left (11/02/16) Vascular Shunt Family History Mother Essential hypertension Father Heart disease Myocardial infarction Sister Neoplasm Diabetes Son No problems noted. Daughter No problems noted. Social History Smoking/Tobacco Use Status: Former Tobacco Use Quit Date: 02/11/89 Pack-years: 2 Alcohol Intake: former Drug use: Never Substance use type: does not use Caregiver/Support person: No Household members: none Housing: other Details: [facility] with meals available Number of Children: 2 Communication Needs: None Education Level: college Do you need help understanding health information?: Often current occupation: retired from [employer]; moved to [place] to care for grandkids; back Pets and animals: No What is your relationship status?: How often do you talk on the phone with friends or family?: three or more times per week How often do you get together with friends or relatives?: twice per week Panel score (0-1 are the most socially isolated patients): 1 What type of physical activity do you participate in: none and sedentary lifestyle Duration: < 15 minutes/day Special ramos needs: No Agree to transfusion: Yes Seatbelt use: always Water heater temp set <120 deg: Yes Working smoke detector in home: Yes Fire extinguisher in home: Yes Do you feel safe at home: Yes Do you feel safe in your relationship?: Yes Additional Social history: Was caring for her daughter's children in [place] after she retired. Diagnosed with CKD in [place] about 10 yrs ago. Moved to [facility]. Didn't see nephrology x 4 yrs. No testing done. Then saw nephrology who did renal U/S that showed cancer of L kidney. Now on dialysis. Exam Const General: cooperative and no acute distress HENHI Head: normocephalic Mouth: moist mucous membranes Eyes Conjunctivae: normal conjunctivae Sclera: normal sclerae Neck Neck: trachea midline, supple and no lymphadenopathy noted Resp Effort & Inspection: able to speak in complete sentences and not labored Auscultation: clear to auscultation bilaterally, no rales, no rhonchi and no wheezes Cardio Jugular venous pressure: no JVD Rate: regular rate and not tachycardic Rhythm: regular rhythm GI Palpation: soft, not firm, no guarding, no masses, not rigid, tender in the epigastrum, in the LUQ and in the RUQ; with no rebound tenderness and No ascites Auscultation: hypoactive bowel sounds Skin General skin exam: no rashes or lesions noted Neuro General: alert, awake, oriented x3 and tone normal Extrem General: no edema Psych Appearance: grossly normal Mental Status: mental status grossly normal Speech and Movement: speech and movement normal Course Vital Signs Temperature 37.1 C 09/22/18 10:32 Pulse 88 09/22/18 10:32 Respiratory Rate 16 09/22/18 10:32 Blood Pressure 138/47 L 09/22/18 10:32 Pulse Oximetry 97 09/22/18 10:32 Temperature 37.1 C 09/22/18 10:32 Temperature Source Skin 09/22/18 10:32 Pulse 88 09/22/18 10:32 Respiratory Rate 16 09/22/18 10:32 Respiratory Effort Non-Labored 09/22/18 10:59 Blood Pressure 138/47 L 09/22/18 10:32 Pulse Oximetry 97 09/22/18 10:32 Oxygen Delivery Method Nasal Cannula 09/22/18 10:32 Oxygen Flow Rate 4 09/22/18 10:32 Pain Level 5 09/22/18 10:32 Comment chronic O2 user at 4 liters 09/22/18 10:32 Lab/Test Results Lab/Test Results: Laboratory Tests Range/Units 09/22/18 09/22/18 10:53 10:53 WBC (4.4-10.8) k/cumm 13.70 H RBC (4.00-5.20) m/cumm 3.69 L Hgb (12.0-15.5) g/dL 11.3 L Hct (36.0-46.0) % 35.1 L MCV (80-95) fL 95.1 H MCH (27.0-33.0) pg 30.6 MCHC (32.0-36.0) g/dL 32.2 RDW (11.7-14.6) % 17.5 H Plt Count (130-400) x1000/uL 196 MPV (8.0-11.0) fL 10.0 Immature Gran % 0.4 Neutrophils % 85.9 Lymphocytes % 7.2 Monocytes % 5.8 Eosinophils % 0.6 Basophils % 0.1 Absolute Neutrophils (1.2-6.7) k/cumm 11.77 H Absolute Lymphocytes (1.2-3.4) k/cumm 0.99 L Absolute Monocytes (0.11-0.7) k/cumm 0.79 H Absolute Eosinophils (0.0-0.7) k/cumm 0.08 Absolute Basophils (0.0-0.2) k/cumm 0.01 Sodium (136-145) mmol/L 133 L Potassium (3.5-5.1) mmol/L 3.7 Chloride (98-107) mmol/L 92 L Carbon Dioxide (21.0-32.0) mmol/L 30.4 Anion Gap (3-11) mmol/L 10.6 BUN (7-18) mg/dL 44 H Creatinine (0.55-1.02) mg/dL 5.71 H* Estimated GFR/1.73 m2 (mL/min/1.73m2) 7.22 Glucose (70-100) mg/dL 117 H Calcium (8.5-10.1) mg/dL 9.1 Magnesium (1.8-2.4) mg/dL 1.9 Total Bilirubin (0.2-1.0) mg/dL 1.0 AST (15-37) U/L 56 H ALT (12-78) U/L 94 H Alkaline Phosphatase (46-116) U/L 82 Troponin I (0.00-0.06) ng/mL 0.32 H* Total Protein (6.4-8.2) g/dL 7.4 Albumin (3.4-5.0) g/dL 3.6 Lipase (73-393) U/L 330
--- NOTE | 2018-09-22 11:32 | DI.CT_ITS ---
SYMPTOM/DIAGNOSIS: ABDOMINAL PAIN, CONSTIPATION CT ABDOMEN AND PELVIS: 09/22 CT examination of the abdomen and pelvis was performed without contrast administration. The heart is enlarged and there is a small pericardial effusion. There are fibrotic changes in the lung bases with minimal honeycombing and multiple calcified nodules are present. There is a small quantity of free fluid around the liver and a small quantity of free fluid in the pelvis, A small quantity of free pelvic fluid was present on previous CT of May 2018. The perihepatic fluid is new. No focal hepatic abnormality seen. There is cholelithiasis. Small quantity of free fluid noted around the gallbladder which may be related to the general ascites. No gross biliary dilatation seen. Pancreas appears intact by noncontrast criteria as does the spleen. Note is made of a prior left nephrectomy. A couple of lymph nodes at the nephrectomy site are grossly unchanged from the previous examination. Right kidney unremarkable in appearance. Adrenals appear normal. Urinary bladder is essentially empty, There is a moderate quantity of fecal material throughout the colon. No evidence of bowel obstruction. Appendix not specifically visualized but there is no evidence of appendicitis or diverticulitis. Question of slight interval increase in prominence of bishop-aortic and paracaval lymph nodes since the previous examination. No bulky adenopathy identified in the abdomen or pelvis. Left adnexal low attenuation mass noted measuring about 3 cm in diameter, this measured about 25 mm diameter on previous examination of 10/2016. CONCLUSION: 1. Mild abdominal ascites, more prominent than examination of May 2018. 2. Question interval increase in prominence of para aortic and para caval nodes, nonspecific 3. Cholelithiasis, no biliary dilatation 4. Slight interval increase in size of low attenuation presumably cystic left ovarian lesion. Pelvic ultrasound may be considered for correlation to rule out solid ovarian mass.
[2018-09-22] MEDS: FAMOTIDINE 20 MG/50 ML BAG 200 MG IVPB (11:38)
--- NOTE | 2018-09-22 11:38 | NUR.NOTE ---
iv fluids stoped as per md ecg performed pt medicated as per mdo Nursing Note:
--- NOTE | 2018-09-22 11:58 | NUR.NOTE ---
pt to ct Nursing Note:
[2018-09-22] MEDS: Mineral Oil-Enema 133 ML BTL PR (13:03)
--- NOTE | 2018-09-22 13:03 | NUR.NOTE ---
pt medicated as per mdo asissted up to [facility] call carrillo placed in reach pt instructed on use Nursing Note:
--- NOTE | 2018-09-22 13:43 | NUR.NOTE ---
pt medicated as per mdo with soap suds enema Nursing Note:
--- NOTE | 2018-09-22 13:59 | NUR.NOTE ---
pt helped back to bed from commode after bowl movment pt states improvment in abd bloating/discomfort Nursing Note:
[2018-09-22] MEDS: Senna TAB 1 TAB (19:53)
[2018-09-22] MEDS: Apixaban 2.5 MG TAB PO (19:53)
[2018-09-22] MEDS: Zolpidem 5 MG TAB (19:53)
--- NOTE | 2018-09-22 20:32 | W.PM.HP.N ---
Date of service: 09/22/18 Time of Service: 17:32 Assessment and Plan (1) Chronic kidney disease (CKD) stage G4/A1, severely decreased glomerular filtration rate (GFR) between 15-29 mL/min/1.73 square meter and albuminuria creatinine ratio less than 30 mg/g: Current visit: No Status: Chronic (2) Counseling regarding advance directives and goals of care: Current visit: No Status: Acute (3) Pulmonary hypertension: Current visit: No Status: Chronic constipation - doing better since her enemas in the ER renal disease - hoping to be well enough to go to dialysis tomorrow Pulmonary hypertension - continue on inhalers, sildenifil and O2 presently not in any pain. She has tylenol. Staff can call me if she has a greater need for pain meds. Overall plan is to see how she does overnight and hopefully be discharged tomorrow in time for dialysis This document was created by [employer] recognition and may contain grammatical and translation errors. Addendum: I have communicated the above to Dr Barrios who will assume her care. SHe did not want to persue her possible abdominal cancer dx. Additionally she said that if she cannot go to dialysis Tues, she wishes to remain on Hospice knowing the end is near. (4) Aortic stenosis: Current visit: No Status: Chronic (5) Bowel obstruction: Current visit: Yes Status: Acute History of Present Illness Chief Complaint: Abdominal pain, nausea and vomiting Consults Consult date: 09/22/18 Requesting physician: Donn Dumont Narrative: ER Note H and P Medical Decision Making 12:30 --78-year-old female with multiple medical problems including history of renal cell carcinoma status post nephrectomy, chronic kidney disease on dialysis (last dialysis was Saturday - did not have as scheduled today), coronary artery disease, [place] hypertension on chronic O2, currently on hospice, started on morphine for breathing difficulty last week, now with generalized abdominal discomfort and constipation for the past 4 days. Patient is tender in her upper abdomen with no peritoneal findings. She is afebrile. Family concerned that patient has been weak recently. Patient also notes that she had nausea and did vomit some dark cola colored liquid vomitus. Vomitus was nonbloody and not coffee-ground in appearance. She is had no bright red blood per rectum or melena. Initial labs were reviewed and troponin is elevated at 0.32. Troponin has been chronically elevated and this is in the setting of chronic kidney disease with a elevated creatinine of 5.7. Patient has no chest pain. Screening ECG was reviewed and interpreted by me: Sinus rhythm 70 bpm, normal axis, no ischemia, nondiagnostic. Concern for constipation secondary to opioid use. Consider other acute surgical pathology including bowel obstruction. Plan to obtain CT a/p. Patient did take antiemetic prior to arrival. I will give Pepcid 20 mg IV. Plan to treat with enema. --CT of the abdomen interpreted by radiology: CONCLUSION: 1. Mild abdominal ascites, more prominent than examination of May 2018. 2. Question interval increase in prominence of para aortic and para caval nodes, nonspecific 3. Cholelithiasis, no biliary dilatation 4. Slight interval increase in size of low attenuation presumably cystic left ovarian lesion. Pelvic ultrasound may be considered for correlation to rule out solid ovarian mass. Plan for outpatient follow - will not likely pursue given hospice. Patient reassessed after fleets enema - had small BM and feels better, less bloated. -- All results discussed with patient. Patient had second enema with soap subs and had larger BM. Now feeling much better. Nursing noting that patient much more weak and difficulty and SOB with minimal exertion. Family requesting admission. -- I spoke with Dr. Fonseca (hospitalist) who requested that I speak with physician adult basic education manager for hospice regarding admission. 15:11 -- I soke with Dr. Art who will admit the patient to hospice service. She requests bridging orders be placed to the floor. When I saw Ana 2 hours later she felt considerably better and hoped to go to dialysis tomorrow. She understood that she had some sort of female tumor, but declared that this was the least of her problems. Review of Systems Review of Systems Patient declared that she is feeling considerably better after the enema. She does not have nausea or vomiting. Her weakness is improved although still present. She is hoping for a good night sleep but she has not had one for several days. She remains fatigued, on oxygen for her pulmonary hypertension, and dyspneic with regular ADLs. Constitutional Reports body ache(s), Reports daytime sleepiness, Reports difficulty sleeping, Reports lethargy, Reports poor appetite and Reports weakness Eyes Denies change in vision ENT Reports system reviewed and no additional complaints, except as docu and Reports dysphagia Cardiovascular Denies chest pain, Denies syncope, Reports lightheadedness, Reports dyspnea and Reports dyspnea on exertion Respiratory Reports dyspnea and Reports dyspnea on exertion Gastrointestinal Reports abdominal pain, Reports change in bowel habits, Reports constipation, Reports cramping, Reports dysphagia, Reports early satiety, Reports dyspepsia, Reports nausea and Reports vomiting Genitourinary Reports system reviewed and no additional complaints, except as docu Musculoskeletal Reports system reviewed and no additional complaints, except as docu Neurologic Denies syncope and Reports weakness Psychiatric Reports abnormal sleep pattern [facility] Medical History Anxiety about health (Acute) ASCVD (arteriosclerotic cardiovascular disease) Atrial fibrillation (Chronic) Atrial fibrillation CHF (congestive heart failure) Chronic kidney disease (CKD) stage G4/A1, severely decreased glomerular filtration rate (GFR) between 15-29 mL/min/1.73 square meter and albuminuria creatinine ratio less than 30 mg/g (Chronic) COPD (chronic obstructive pulmonary disease) with emphysema (Chronic) Counseling regarding advance directives and goals of care (Acute) Cyanosis (Acute) Diabetes (Chronic) Dialysis patient (Acute) Diverticulitis Diverticulosis (Chronic 06/06/16) Encounter for hospice care discussion (Acute) Essential hypertension (Chronic 06/06/16) H/O echocardiogram (Inactive) Hypoxia (Acute) Orthostatic hypotension (Chronic) Palliative care patient (Chronic) Pulmonary hypertension (Chronic) Renal cell carcinoma of left kidney (Resolved 09/19/16) Surgical History Carotid endarterectomy colonscopy w/ bx (03/28/12) EGD w/ BX (03/28/12) hemodialysis shunt (09/28/16) Hx of cardiac catheterization (Chronic 03/04/18) Ligation of fallopian tube radical nephrectomy left (11/02/16) Vascular Shunt Family History Mother Essential hypertension Father Heart disease Myocardial infarction Sister Neoplasm Diabetes Son No problems noted. Daughter No problems noted. Social History Smoking/Tobacco Use Status: Former Tobacco Use Quit Date: 02/11/89 Pack-years: 2 Alcohol Intake: former Drug use: Never Substance use type: does not use Caregiver/Support person: No Household members: none Housing: other Details: [facility], [facility] with meals available Number of Children: 2 Communication Needs: None Education Level: college Do you need help understanding health information?: Often current occupation: retired from [employer]; moved to [place] to care for grandkids; back Pets and animals: No What is your relationship status?: How often do you talk on the phone with friends or family?: three or more times per week How often do you get together with friends or relatives?: twice per week Panel score (0-1 are the most socially isolated patients): 1 What type of physical activity do you participate in: none and sedentary lifestyle Duration: < 15 minutes/day Special ramos needs: No Agree to transfusion: Yes Seatbelt use: always Water heater temp set <120 deg: Yes Working smoke detector in home: Yes Fire extinguisher in home: Yes Do you feel safe at home: Yes Do you feel safe in your relationship?: Yes Additional Social history: Was caring for her daughter's children in [place] after she retired. Diagnosed with CKD in [place] about 10 yrs ago. Moved to [facility]. Didn't see nephrology x 4 yrs. No testing done. Then saw nephrology who did renal U/S that showed cancer of L kidney. Now on dialysis. Meds Home Medications Medication Instructions Recorded Confirmed Type calcium carbonate 1 tab PO TID 06/15/16 09/22/18 History ferrous sulfate [FeroSul] 650 mg PO DAILY 06/15/16 09/22/18 History Oxygen unit NS PRN #1 07/02/16 08/08/18 Clinic acetaminophen 650 mg PO Q6H PRN tab-cap 11/12/16 09/22/18 History atorvastatin 40 mg PO DAILY #90 tab-cap 09/13/17 09/22/18 Rx psyllium seed (sugar) 1 tsp PO BID gm 10/31/17 09/22/18 History allopurinol 100 mg tablet 100 mg PO DAILY #90 tab-cap 01/01/18 09/22/18 Rx albuterol sulfate 90 mcg/actuation 2 inh IH Q4H PRN 01/07/18 09/22/18 History aerosol inhaler albuterol sulfate 2.5 mg IH Q4H PRN #180 ml 01/29/18 09/22/18 Rx compressor, for nebulizer #1 each 01/29/18 08/08/18 Rx sildenafil (antihypertensive) 20 20 mg PO TID 03/14/18 09/22/18 History mg tablet Nephro-Stanley 1 tab PO DAILY 05/29/18 09/22/18 History Eliquis 2.5 mg PO BID 06/25/18 09/22/18 History fluticasone fur. 100 mcg-umeclid 1 inh IH DAILY 07/14/18 09/10/18 History 62.5 mcg-vilant 25 mcg inhalat.powder zolpidem 10 mg tablet 10 mg PO QHS #30 tab 08/19/18 09/22/18 Rx midodrine 2.5 mg tablet 2.5 mg PO TID #90 tab 09/02/18 09/22/18 Rx ipsxrjzwvdk-hxmfjsxyk-opdffzfd 1 ea INHALATION DAILY 09/22/18 09/22/18 History [Trelegy Ellipta] furosemide 40 mg PO DIRECTED 09/22/18 09/22/18 History haloperidol lactate 1 mg PO .Q6H,PRN 09/22/18 09/22/18 History hyoscyamine sulfate 0.125 - 0.25 mg PO .Q4H,PRN 09/22/18 09/22/18 History lorazepam 1 mg PO .Q6H,PRN 09/22/18 09/22/18 History ondansetron 4 - 8 mg PO PRN PRN 09/22/18 09/22/18 History prochlorperazine [address] PRN PRN 09/22/18 09/22/18 History prochlorperazine maleate 10 mg PO PRN PRN 09/22/18 09/22/18 History sennosides [senna] 8.6 mg PO DIRECTED 09/22/18 09/22/18 History zolpidem [Ambien] 5 - 10 mg PO HS 09/22/18 09/22/18 History Allergies Allergy/AdvReac Type Severity Reaction Status Date / Time morphine AdvReac Intermediate Nausea Verified 09/10/18 17:30 paper tape Allergy Unknown rash Uncoded 09/10/18 17:30 Exam Narrative Exam Narrative: atient Name: ANA LOTT #: [id number]: ER Ordering Provider: Donn Dumont M.D. : REG ER Primary Care Provider: Aury Melissa of Exam: 09/22/18Sex: F : 3Age: 78 Exam(s) a CT:CT abdomen & pelvis wo SYMPTOM/DIAGNOSIS: ABDOMINAL PAIN, CONSTIPATION CT ABDOMEN AND PELVIS: 09/22 CT examination of the abdomen and pelvis was performed without contrast administration. The heart is enlarged and there is a small pericardial effusion. There are fibrotic changes in the lung bases with minimal honeycombing and multiple calcified nodules are present. There is a small quantity of free fluid around the liver and a small quantity of free fluid in the pelvis, A small quantity of free pelvic fluid was present on previous CT of May 2018. The perihepatic fluid is new. No focal hepatic abnormality seen. There is cholelithiasis. Small quantity of free fluid noted around the gallbladder which may be related to the general ascites. No gross biliary dilatation seen. Pancreas appears intact by noncontrast criteria as does the spleen. Note is made of a prior left nephrectomy. A couple of lymph nodes at the nephrectomy site are grossly unchanged from the previous examination. Right kidney unremarkable in appearance. Adrenals appear normal. Urinary bladder is essentially empty, There is a moderate quantity of fecal material throughout the colon. No evidence of bowel obstruction. Appendix not specifically visualized but there is no evidence of appendicitis or diverticulitis. Question of slight interval increase in prominence of bishop-aortic and paracaval lymph nodes since the previous examination. No bulky adenopathy identified in the abdomen or pelvis. Left adnexal low attenuation mass noted measuring about 3 cm in diameter, this measured about 25 mm diameter on previous examination of 10/2016. CONCLUSION: 1. Mild abdominal ascites, more prominent than examination of May 2018. 2. Question interval increase in prominence of para aortic and para caval nodes, nonspecific 3. Cholelithiasis, no biliary dilatation 4. Slight interval increase in size of low attenuation presumably cystic left ovarian lesion. Pelvic ultrasound may be considered for correlation to rule out solid ovarian mass. [id number]: Total DLP = 0.00 mGy-cm Const General: cooperative, comfortable and no acute distress Nutritional Appearance: average body habitus Orientation: oriented x3 Eyes General: appearance normal, both eyes and all related structures Resp Effort & Inspection: able to speak in complete sentences Auscultation: abnormal I/E ratio, no rales and vesicular breath sounds Cardio Heart Sounds: murmur GI Palpation: soft and no hepatosplenomegaly Auscultation: normal bowel sounds Results Edema Labs : 09/22/18 10:53 09/22/18 10:53 Laboratory Results - last 24 hr 09/22/18 09/22/18 10:53 10:53 WBC 13.70 H RBC 3.69 L Hgb 11.3 L Hct 35.1 L MCV 95.1 H MCH 30.6 MCHC 32.2 RDW 17.5 H Plt Count 196 MPV 10.0 Immature Gran % 0.4 Neutrophils % 85.9 Lymphocytes % 7.2 Monocytes % 5.8 Eosinophils % 0.6 Basophils % 0.1 Absolute Neutrophils 11.77 H Absolute Lymphocytes 0.99 L Absolute Monocytes 0.79 H Absolute Eosinophils 0.08 Absolute Basophils 0.01 Sodium 133 L Potassium 3.7 Chloride 92 L Carbon Dioxide 30.4 Anion Gap 10.6 BUN 44 H Creatinine 5.71 H* Estimated GFR/1.73 m2 7.22 Glucose 117 H Calcium 9.1 Magnesium 1.9 Total Bilirubin 1.0 AST 56 H ALT 94 H Alkaline Phosphatase 82 Troponin I 0.32 H* Total Protein 7.4 Albumin 3.6 Lipase 330 Last Vital Signs Temp 98.1 F 09/22/18 16:13 Pulse 71 09/22/18 16:13 Resp 18 09/22/18 16:13 BP 117/65 09/22/18 16:13 Pulse Ox 96 09/22/18 16:13
[2018-09-23 07:22] VITALS: BP 120/68; PULSE 69; RESP 18; TEMP 36.1; O2SAT 97
[2018-09-23] MEDS: Apixaban 2.5 MG TAB PO (09:17)
[2018-09-23] MEDS: Atorvastatin 40 MG TAB PO (09:17)
[2018-09-23] MEDS: Furosemide 40 MG TAB PO (09:23)
[2018-09-23] MEDS: Polyethylene Glycol 3350 17 GM PACKET PO (09:23)
--- NOTE | 2018-09-23 10:30 | PDOC.CMIN ---
Care Management Initial Assess REASON FOR HOSPITALIZATION:: abdominal pain, N/V, constipation. Admitted for symptom management of problem NOT related to her Hospice diagnosis, so admitted under her Medicare insurance. PAST MEDICAL HISTORY/PAST SURGICAL HISTORY:: Medical: anxiety, ASCVD, atrial fib, CHF, CKD, COPD, cyanosis, diabetes, dialysis patient, diverticulitis, diverticulosis, HTN, hypoxia, orthostatic hypotension, palliative care patient, pulmonary HTN, renal cell carcinoma L kidney. Surgical: carotid endarterectomy, colonoscopy with biopsy, EGD w/ biopsy, hemodyalysis shunt, cardiac catheterization, ligation of fallopian tube, radical L nephrectomy, vascular shunt. PREVIOUS FUNCTIONAL STATUS/SOCIAL/FAMILY SUPPORTS:: She lives alone at the [facility] where she has lived for several years. She has son Tin who lives locally and is supportive. She sometimes drives and makes own meals. She used to work as a cook. She also has a daughter Dilia Breen who lives out of state. She has been on Hospice. CURRENT FUNCTIONAL STATUS:: She is curled up in bed when CM enters, but sat up in bed to talk. She easily engages in discussion re plans. ADVANCE DIRECTIVES:: Document on file at [facility]. Tin is agent and Dilia is alternate. She has COL[employer] form on file. Has patient been provided with information about the portal?: Yes Did the patient sign up for the portal?: No CODE STATUS:: DNR/DNI INSURANCE COVERAGE / FINANCIAL ISSUES:: Medicare. Medicaid CURRENT HOME/COMMUNITY SERVICES/EQUIPMENT:: Hospice services through [facility]. Has walker, tub seat and grab bars and home O2 for home use. Also followed by Palliative Care. PRIMARY CARE PHYSICIAN:: Aury Melissa MD POTENTIAL DISCHARGE NEEDS:: She will resume Hospice Care upon discharge. PATIENT/FAMILY EDUCATION NEEDS:: Review d/c instructions re meds and activity levels, Ask me Now questions. ANTICIPATED BARRIERS TO DISCHARGE:: none identified. TRANSPORTATION:: via car with son PLAN:: d/c home as per MD to resume Hospice services upon d/c.
[2018-09-23 11:10] VITALS: O2SAT 97
--- NOTE | 2018-09-23 13:02 | PDOC.CMDIS ---
LACE Index Scoring Tool - Questions: Length of Stay (in days): 2 Acuity (Admit via E.D.?): Yes Comorbidities: Diabetes w/o Complication, Congestive Heart Failure, Chronic Pulmonary Disease, Liver or Renal Disease E.D. Visits: 6 - Answers: Total Score: 14 Risk of Readmission: High Risk Care Management Discharge Reason for Hospitalization: abdominal pain, N/V, constipation. Admitted for symptom management of problem NOT related to her Hospice diagnosis, so admitted under her Medicare insurance. Discharge Plan: She is being discharged home today to resume Hospice services, and she has already changed her dialysis time to tomorrow at 11 AM. Her son will transport her at 12:15 today. Patient/Family Education Needs: RN to review d/c instructions re meds and activity levels. Reviewed Ask me Now questions. Services Needed at Discharge: Home Health Care Services
--- NOTE | 2018-09-23 17:49 | W.PM.DS.N ---
Date of service: 09/23/18 Time of Service: 09:49 DS: Diagnosis Discharge Diagnosis (1) Chronic kidney disease (CKD) stage G4/A1, severely decreased glomerular filtration rate (GFR) between 15-29 mL/min/1.73 square meter and albuminuria creatinine ratio less than 30 mg/g: Status: Chronic (2) Counseling regarding advance directives and goals of care: Status: Acute (3) Pulmonary hypertension: Status: Chronic (4) Aortic stenosis: Status: Chronic (5) Bowel obstruction: Status: Resolved Discharge Plan Disposition Patient Disposition: HOME W/HOME HEALTH SERVICE Condition: Poor Discharge Details Chief Complaint: Abd Prob Clinical Impression: Constipation, Ascites, Ovarian cystic mass, CKD (chronic kidney disease), Elevated troponin Reason For Visit: CONSTIPATION Admit Date/Time: 09/22/18 15:09 Admit Provider: Omuou Art Attending Provider: Oumou Art Primary Care Provider: Aury Melissa ED Provider: Donn Dumont Hospital Course Hospital Course: Admitted for constipation. On hospice for pulmonary hypertension. Initial imaging showed small amount of ascites and cystic ovarian mass, with minimal change from prior. Unlikely new ovarian cancer, given this. Dr Art admitted for symptom management related to a non-hospice diagnosis. Patient was given enemas and bowel medications. Was able to have a few BMs on day of admission. None so far today, but feels she has better idea of what to take. Note that her constipation followed an episode of severe nausea and vomiting. She missed her dialysis on Saturday and yesterday; she is due to resume tomorrow. This treatment, too, is not part of her hospice care. Home Meds and New Rx's Prescriptions: Continued albuterol sulfate 2.5 mg /3 mL (0.083 %) solution for nebulization 2.5 mg IH Q4H PRN (Reason: shortness of breath or wheezing) Qty: 180 RF: 0 (DME) compressor, for nebulizer device See Dose Instructions .ROUTE .MEDSUPPLY Qty: 1 RF: 0 Metamucil (sugar) powder 1 tsp PO BID RF: 0 Oxygen EACH NS PRN Qty: 1 RF: 0 acetaminophen 325 MG tablet 650 mg PO Q6H PRN RF: 0 allopurinol 100 mg tablet 100 mg PO DAILY Qty: 90 RF: 3 albuterol sulfate 90 mcg/actuation HFA aerosol inhaler 2 inh IH Q4H PRNRF: 0 Trelegy Ellipta 100-62.5-25 mcg blister with device 1 inh IH DAILY RF: 0 midodrine 2.5 mg tablet 2.5 mg PO TID Qty: 90 RF: 0 Nephro-Stanley 0.8 mg Tablet 1 tab PO DAILY RF: 0 Eliquis 5 mg tablet 2.5 mg PO BID RF: 0 furosemide 40 mg Tablet 40 mg PO DIRECTED RF: 0 zolpidem [Ambien] 10 mg Tablet 5 - 10 mg PO HS RF: 0 hyoscyamine sulfate 0.125 mg Tablet 0.125 - 0.25 mg PO .Q4H,PRN RF: 0 haloperidol lactate 2 mg/mL Concentrate 1 mg PO .Q6H,PRN RF: 0 prochlorperazine maleate 10 mg Tablet 10 mg PO PRN PRNRF: 0 prochlorperazine 25 mg Suppository 25 mg OR PRN PRNRF: 0 lorazepam 1 mg Tablet 1 mg PO .Q6H,PRN RF: 0 sennosides [senna] 8.6 mg Tablet 8.6 mg PO DIRECTED RF: 0 ondansetron 4 mg Tablet,Disintegrating 4 - 8 mg PO PRN PRNRF: 0 Discontinued atorvastatin 40 MG tablet 40 mg PO DAILY Qty: 90 RF: 3 sildenafil (antihypertensive) 20 mg tablet 20 mg PO TID RF: 0 ferrous sulfate [FeroSul] 325 MG tablet 650 mg PO DAILY RF: 0 calcium carbonate 500 MG tablet,chewable 1 tab PO TID RF: 0 No Action zolpidem 10 mg tablet 10 mg PO QHS Qty: 30 RF: 0 Trelegy Ellipta 100-62.5-25 mcg Blister With Device 1 ea INHALATION DAILY RF: 0 Discharge Instructions Instructions: Constipation (DC), Bowel Obstruction (DC) Stand Alone Forms: Nursing Discharge Form Referrals: Aury Melissa DO [Primary Care Provider] - 10/02/18 1:00 pm (Home visit scheduled) Activity:: Activity as Tolerated Equipment/Supplies:: No Equipment Needed Diet:: As Tolerated Discharge Orders Discharge Orders: Discharge Order (Routine); Ordered 09/23/18 Ordered By: Liza Villareal Ready Discharge Data Discharge Date/Time-TO BE ENTERED AT DEPARTURE: 09/23/18 12:26 DS: Summary Status at Discharge Cognitive/behavioral status at discharge: alert, oriented, wanting to go home Functional status at discharge: independent ambulation Overall status at discharge: patient is back to baseline Time Spent with Patient Less than 30 minutes Exam Narrative Exam Narrative: Lying in bed, looking comfortable, NAD No abd pain. No n.v.d Lungs clear though distant in anterior reyes, small amount rhonchi and crackles posterior. Heart regular rate, 2-3/6 murmur abd soft, NT, ND Psych no anxiety at time I was seeing her, anxious about being discharged home earlier Skin has dialysis fistula in place DS: Data Vitals/I&O Vitals and I&O: Vital Signs Temperature 97.0 F L 09/23/18 07:22 Temperature Source Tympanic 09/23/18 07:22 Pulse 69 09/23/18 07:22 Pulse Rhythm Regular 09/23/18 11:11 Pulse 80 09/22/18 12:40 Respiratory Rate 18 09/23/18 07:22 Respiratory Effort Non-Labored 09/23/18 11:11 Respiratory Depth Normal 09/23/18 11:11 Respiratory Pattern Normal 09/23/18 11:11 Blood Pressure 120/68 09/23/18 07:22 Blood Pressure Mean 65 09/22/18 11:30 Pulse Oximetry 97 09/23/18 11:10 Oxygen Delivery Method Nasal Cannula 09/23/18 11:10 Oxygen Flow Rate 4 09/23/18 11:10 Pain Level 2 09/23/18 07:22 Comment 09/22/18 16:17 Intake & Output 09/22/18 09/23/18 09/23/18 23:59 11:59 23:59 Intake Total 370 / 620 440 / 440 Balance 370 / 620 440 / 440 Weight 145 lb 1.027 oz 148 lb 9.465 oz Intake: IV 250 / 500 Oral 120 / 120 440 / 440 Other: Urine Appearance Clear Comment reports voiding quite a bit this morning. Dialysis [facility] Medical History Anxiety about health (Acute) ASCVD (arteriosclerotic cardiovascular disease) Atrial fibrillation (Chronic) Atrial fibrillation CHF (congestive heart failure) Chronic kidney disease (CKD) stage G4/A1, severely decreased glomerular filtration rate (GFR) between 15-29 mL/min/1.73 square meter and albuminuria creatinine ratio less than 30 mg/g (Chronic) COPD (chronic obstructive pulmonary disease) with emphysema (Chronic) Counseling regarding advance directives and goals of care (Acute) Cyanosis (Acute) Diabetes (Chronic) Dialysis patient (Acute) Diverticulitis Diverticulosis (Chronic 06/06/16) Encounter for hospice care discussion (Acute) Essential hypertension (Chronic 06/06/16) H/O echocardiogram (Inactive) Hypoxia (Acute) Orthostatic hypotension (Chronic) Palliative care patient (Chronic) Pulmonary hypertension (Chronic) Renal cell carcinoma of left kidney (Resolved 09/19/16) Surgical History Carotid endarterectomy colonscopy w/ bx (03/28/12) EGD w/ BX (03/28/12) hemodialysis shunt (09/28/16) Hx of cardiac catheterization (Chronic 03/04/18) Ligation of fallopian tube radical nephrectomy left (11/02/16) Vascular Shunt Family History Mother Essential hypertension Father Heart disease Myocardial infarction Sister Neoplasm Diabetes Son No problems noted. Daughter No problems noted. Social History Smoking/Tobacco Use Status: Former Tobacco Use Quit Date: 02/11/89 Pack-years: 2 Alcohol Intake: former Drug use: Never Substance use type: does not use Caregiver/Support person: No Household members: none Housing: other Details: [facility], [place] with meals available Number of Children: 2 Communication Needs: None Education Level: college Do you need help understanding health information?: Often current occupation: retired from [employer]; moved [place] to care [place] grandkids; back Pets and animals: No What is your relationship status?: How often do you talk on the phone with friends or family?: three or more times per week How often do you get together with friends or relatives?: twice per week Panel score (0-1 are the most socially isolated patients): 1 What type of physical activity do you participate in: none and sedentary lifestyle Duration: < 15 minutes/day Special ramos needs: No Agree to transfusion: Yes Seatbelt use: always Water heater temp set <120 deg: Yes Working smoke detector in home: Yes Fire extinguisher in home: Yes Do you feel safe at home: Yes Do you feel safe in your relationship?: Yes Additional Social history: Was caring for her daughter's children in [place] after she retired. Diagnosed with CKD in [place] about 10 yrs ago. Moved to [facility]. Didn't see nephrology x 4 yrs. No testing done. Then saw nephrology who did renal U/S that showed cancer of L kidney. Now on dialysis.
== END 2018-09-23 12:26 | disposition home health service (06) ==
LOC: ER 14:22 → MS 09-23 09:26
PROVIDERS: Admitting Provider Family Medicine; Emergency Provider Student in an Organized Health Care Education/Training Program; PCP Student in an Organized Health Care Education/Training Program; Visit Provider Family Medicine
DX: N18.4 Chronic kidney disease, stage 4 (severe) (principal); Z71.89 Other specified counseling; I27.20 Pulmonary hypertension, unspecified; I35.0 Nonrheumatic aortic (valve) stenosis; K56.609 Unspecified intestinal obstruction, unspecified as to partial versus complete obstruction; Z51.5 Encounter for palliative care; R18.8 Other ascites; Z99.2 Dependence on renal dialysis
CPT/HCPCS: 36415; 80053; 83690; 93005; 96361; 96374; 99238; 99285; NC; 74176; 83735; 84484; 85025; 93010; 99284; G0378

== ENCOUNTER 2018-11-01 10:23 | Inpatient (IN) | payer OTHER, SELFPAY ==
[2018-11-01 12:23] VITALS: BP 102/58; PULSE 102; RESP 20; TEMP 36.6; O2SAT 99
--- NOTE | 2018-11-01 12:26 | W.PM.HP.N ---
Date of service: 11/01/18 Assessment and Plan Assessment and plan (1) Aortic stenosis: Status: Chronic Assessment and plan: Not a surgical candidate. Contributing to her pulm htn and chf. (2) Dying care: Status: Acute Assessment and plan: Plan was to bring her inpatient when she was dying. Now there. Lives alone at [facility]. Two children actively involved in her care. Both present. They know, as does Ana, that I think she will on this admission. She looks comfortable. Will use low dose fentanyl for pain, given her ESRD. Use low dose morphine only for any respiratory distress. (3) Pulmonary hypertension: Status: Chronic Assessment and plan: Primary reason why she is on hospice. No further treatments were available. Had adverse response to several treatments. Heart is rapidly failing in response to her Pulm Htn. (4) Acute on chronic heart failure: Status: Acute Assessment and plan: Neck veins bounding, tachycardic, extremely weak. (5) Dialysis patient: Status: Acute Assessment and plan: Likely will not be able to return to dialysis as she is too weak to sit up. Did receive treatment yesterday. (6) Stage 5 chronic kidney disease: Status: Acute Assessment and plan: From RCC among other problems. Reportedly in remission from her RCC but has not had any recent restaging. History of Present Illness History of Present Illness Chief Complaint: actively dying from pulm htn, ESRD Narrative: Ana has had dramatic decline over last week. I saw her yesterday at dialysis and she was so weak she could barely sit up. Her BP was extremely low. She has been on hospice for several months. She lives alone at [facility] and the plan was always to admit her to [facility] for end of life care. Her son and daughter are with her. She is minimally responsive. Her son has given her 2 lose doses of morphine today for dyspnea. She seems to be having more pain with movement. Given her ESRD, we will start a low-dose fentanyl patch. Review of Systems Review of Systems Narrative: Weak elderly woman, minimally responsive too weak to sit up dyspneic, though not working, too weak to work hard not eating or drinking urinated a little bit yesterday while at dialysis keeping eyes closed able to hear but not talking has pressure ulcer on ankle, being treated by hospice nurses children present, aware that their mother is expected to on this admission [facility] Medical History Acute on chronic heart failure (Acute) Anxiety about health (Acute) ASCVD (arteriosclerotic cardiovascular disease) Atrial fibrillation (Chronic) Atrial fibrillation CHF (congestive heart failure) Chronic kidney disease (CKD) stage G4/A1, severely decreased glomerular filtration rate (GFR) between 15-29 mL/min/1.73 square meter and albuminuria creatinine ratio less than 30 mg/g (Chronic) COPD (chronic obstructive pulmonary disease) with emphysema (Chronic) Counseling regarding advance directives and goals of care (Acute) Cyanosis (Acute) Diabetes (Chronic) 2 sisters and one brother Dialysis patient (Acute) Diverticulitis Diverticulosis (Chronic 06/06/16) Dying care (Acute) Encounter for hospice care discussion (Acute) Essential hypertension (Chronic 06/06/16) Low @ HD, AMlodipine 5mg vs 10mg (03/2017). May need to d/c .. 07/2017, review HS BP #'s @ next visit. ik H/O echocardiogram (Inactive) Hospice care (Acute) Hypoxia (Acute) Orthostatic hypotension (Chronic) Palliative care patient (Chronic) Pulmonary hypertension (Chronic) [facility] Cardio-Pulm, Heart Failure Team (Dr. Josef Angeles ([phone]) & Santa Cabrales APRN). 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 Hx of cardiac catheterization (Chronic 03/04/18) Ligation of fallopian tube CEA radical nephrectomy left (11/02/16) Vascular Shunt (L)Upper Ext. Family History Mother Essential hypertension Father Heart disease Myocardial infarction Sister Neoplasm Breast CA, survived Diabetes 2 sisters and one brother Son No problems noted. Daughter No problems noted. 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[employer]); moved to [place] to care for grandkids; back Pets and animals: No What is your relationship status?: How often do you talk on the phone with friends or family?: three or more times per week How often do you get together with friends or relatives?: twice per week Panel score (0-1 are the most socially isolated patients): 1 What type of physical activity do you participate in: none and sedentary lifestyle Duration: < 15 minutes/day Special ramos needs: No Agree to transfusion: Yes Seatbelt use: always Water heater temp set <120 deg: Yes Working smoke detector in home: Yes Fire extinguisher in home: Yes Do you feel safe at home: Yes Do you feel safe in your relationship?: Yes Additional Social history: Was caring for her daughter's children in [place] after she retired. Diagnosed with CKD in [place] about 10 yrs ago. Moved to [facility]. Didn't see nephrology x 4 yrs. No testing done. Then saw nephrology who did renal U/S that showed cancer of L kidney. Last dialysis 10/31. Too weak to continue. Meds Home Medications and Allergies Home Medications Medication Instructions Recorded Confirmed Type Oxygen unit NS PRN #1 07/02/16 08/08/18 Clinic acetaminophen 650 mg PO Q6H PRN tab-cap 11/12/16 09/22/18 History psyllium seed (sugar) 1 tsp PO BID gm 10/31/17 09/22/18 History allopurinol 100 mg tablet 100 mg PO DAILY #90 tab-cap 01/01/18 09/22/18 Rx albuterol sulfate 90 mcg/actuation 2 inh IH Q4H PRN 01/07/18 09/22/18 History aerosol inhaler albuterol sulfate 2.5 mg IH Q4H PRN #180 ml 01/29/18 09/22/18 Rx compressor, for nebulizer #1 each 01/29/18 08/08/18 Rx Nephro-Stanley 1 tab PO DAILY 05/29/18 09/22/18 History Eliquis 2.5 mg PO BID 06/25/18 09/22/18 History fluticasone fur. 100 mcg-umeclid 1 inh IH DAILY 07/14/18 09/10/18 History 62.5 mcg-vilant 25 mcg inhalat.powder midodrine 2.5 mg tablet 2.5 mg PO TID #90 tab 09/02/18 09/22/18 Rx [id number]-qryczltrj-[id number] 1 ea INHALATION DAILY 09/22/18 09/22/18 History [Trelegy Ellipta] furosemide 40 mg PO DIRECTED 09/22/18 09/22/18 History haloperidol lactate 1 mg PO .Q6H,PRN 09/22/18 09/22/18 History hyoscyamine sulfate 0.125 - 0.25 mg PO .Q4H,PRN 09/22/18 09/22/18 History lorazepam 1 mg PO .Q6H,PRN 09/22/18 09/22/18 History ondansetron 4 - 8 mg PO PRN PRN 09/22/18 09/22/18 History prochlorperazine 25 mg CO PRN PRN 09/22/18 09/22/18 History prochlorperazine maleate 10 mg PO PRN PRN 09/22/18 09/22/18 History sennosides [senna] 8.6 mg PO DIRECTED 09/22/18 09/22/18 History zolpidem 10 mg tablet 10 mg PO QHS #30 tab 09/25/18 Rx artificial tears(hypromellose) 0.3 2 drp OP 4-8XD PRN #30 ml 10/02/18 10/02/18 Rx % eye drops erythromycin 5 mg/gram (0.5 %) eye 0.5 inch OP BID #3.5 gm 10/02/18 10/02/18 Rx ointment Allergies Allergy/AdvReac Type Severity Reaction Status Date / Time morphine AdvReac Intermediate Nausea Verified 10/02/18 13:28 paper tape Allergy Unknown rash Uncoded 10/02/18 13:28 Exam Narrative Exam Narrative: Weak elderly woman, minimally responsive, appears to be transitioning to actively dying VS done; tachycardic to the 110s-120s Eyes: keeps them closed HEENT: lips cyanotic, nc in place, no facial droop, dry mucuous membranes NECK: +JVD Resp:shallow breathing no acute distress no increased WOB Heart: murmur, rub, irregularly irregular, tachycardic Abd: soft, NT Ext: has pressure ulcer right ankle. fistula antecubital space skin: cyanotic, + clubbing neuro: minimally responsive psych: she told her nurse she was not afraid Results Last Vital Signs Temp 97.9 F 11/01/18 12:23 Pulse 102 H 11/01/18 12:23 Resp 20 11/01/18 12:23 BP 102/58 L 11/01/18 12:23 Pulse Ox 99 11/01/18 12:23
[2018-11-01] MEDS: fentaNYL 12 MCG PATCH TD (13:37)
[2018-11-01] MEDS: Scopolamine 1 MG/3 DAYS PATCH TD (13:37)
[2018-11-01 13:41] VITALS: BP 102/58; PULSE 102; RESP 20; TEMP 36.6; O2SAT 77
[2018-11-01 14:08] VITALS: BP 102/58; PULSE 102; RESP 20; TEMP 36.6; O2SAT 77
--- NOTE | 2018-11-02 09:44 | W.PM.PROGNOT ---
Date of Service Date of service: 11/02/18 Time of Service: 09:00 Assessment and Plan Assessment and plan (1) Dying care: Status: Acute Assessment and plan: Actively dying. Unresponsive. Grandson and great-granddaughter have come to say good-bye. She looks comfortable. Asked family to cancel dialysis indefininitely. (2) Multiple organ system failure: Status: Acute Assessment and plan: Clearly has kidney, heart, and respiratory failure. PULM HTN remais reason for hospice. (3) Dialysis patient: Status: Acute Assessment and plan: No further treatments. Family to inform center. (4) Hospice care: Status: Acute Assessment and plan: Changing from symptom management to respite. Expected date of discharge would be up through Saturday. Expect she will before then. Subjective Subjective Patient reports: no new complaints and no bowel movement Interval history since last seen: Ana is unresponsive. She is lying on her back breathing shallowly. No apnea noted. Does still have bounding JVD. Explained to son Malcolm and daughter Dilia that I will be changing her over to respite, as I am not making medication changes. She is slowly and comfortably dying. This gives her 5 nights as [facility]. If she is still alive on Saturday, will need to make another plan. Expect she will before then. Cause of will be multi-system organ failure. Exam Narrative Exam Narrative: Weak elderly woman, unresponsive, appears to be actively dying VS done; tachycardic to the 110s-120s Eyes: keeps them closed HEENT: lips cyanotic, nc in place, no facial droop, dry mucuous membranes NECK: +JVD Resp:shallow breathing no acute distress no increased WOB Heart: murmur, rub, irregularly irregular, tachycardic Abd: soft, NT Ext: has pressure ulcer right ankle. fistula antecubital space skin: cyanotic, + clubbing neuro: unresponsive psych: no anxiety Objective Objective Clinical Data: Vital Signs Temperature 97.9 F 11/01/18 14:08 Temperature Source Tympanic 11/01/18 12:23 Pulse 102 H 11/01/18 14:08 Pulse Rhythm Regular 11/01/18 13:41 Respiratory Rate 20 11/01/18 14:08 Respiratory Effort 11/01/18 19:50 Respiratory Depth Deep 11/01/18 19:50 Respiratory Pattern Irregular 11/01/18 19:50 Blood Pressure 102/58 L 11/01/18 14:08 Pulse Oximetry 77 L 11/01/18 14:08 Oxygen Delivery Method Nasal Cannula 11/01/18 14:08 Oxygen Flow Rate 4 11/01/18 14:08 Intake & Output 11/01/18 11/01/18 11/02/18 11:59 23:59 11:59 Weight 141 lb 15.996 oz
--- NOTE | 2018-11-02 10:15 | INITIAL_ITS ---
- If Service Date Differs Date of service: 11/02/18 Time of Service: 10:15 Care Management Initial Assess REASON FOR HOSPITALIZATION:: Aortic stenosis. Hospice PAST MEDICAL HISTORY/PAST SURGICAL HISTORY:: Medical History: Acute on chronic heart failure (Acute). Anxiety about health (Acute). ASCVD (arteriosclerotic cardiovascular disease). Atrial fibrillation (Chronic). Atrial fibrillation. CHF (congestive heart failure). Chronic kidney disease (CKD) stage G4/A1, severely decreased glomerular filtration rate (GFR) between 15-29 mL/min/1.73 square meter and albuminuria creatinine ratio less than 30 mg/g (Chronic). COPD (chronic obstructive pulmonary disease) with emphysema (Chronic). Counseling regarding advance directives and goals of care (Acute). Cyanosis (Acute). Diabetes (Chronic). 2 sisters and one brother. Dialysis patient (Acute). Diverticulitis. Diverticulosis (Chronic 06/06/16). Dying care (Acute). Encounter for hospice care discussion (Acute). Essential hypertension (Chronic 06/06/16). Low @ HD, AMlodipine 5mg vs 10mg (03/2017). May need to d/c .. 07/2017, review HS BP #'s @ next visit. ik. H/O echocardiogram (Inactive). Hospice care (Acute). Hypoxia (Acute). Orthostatic hypotension (Chronic). Palliative care patient (Chronic). Pulmonary hypertension (Chronic). [facility] Cardio-Pulm, Heart Failure Team (Dr. Jsoef Angeles ([phone] 5) & Santa Cabrales APRN). Renal cell carcinoma of left kidney (Resolved 09/19/16). radical nephrectomy 11/02/16. hemodialysis M,W,F. Surgical History: Carotid endarterectomy. R side 2004 then L side 2007. colonscopy w/ bx (03/28/12). Tubular adenoma. EGD w/ BX (03/28/12). Chronic active gastritis w/ organisms consistent w/ HPylori. hemodialysis shunt (09/28/16). [facility]. Hx of cardiac catheterization (Chronic 03/04/18). Ligation of fallopian tube. CEA. radical nephrectomy left (11/02/16). Vascular Shunt. (L)Upper Ext. PREVIOUS FUNCTIONAL STATUS/SOCIAL/FAMILY SUPPORTS:: Ana lives alone in an apartment in [facility]. Until this week she has been managing well on her own with assistance from hospice staff. She has been going to dialysis and occasionally out shopping. Family members have also beem supportive and helpful with transportation etc. CURRENT FUNCTIONAL STATUS:: Ana was lying in bed, not responding to verbal stimuli when CM entered her room. According to the family that was present, she has been in a great deal of pain. Shortly before CM came to meet with her, Ana received morphine and now seems much more comfortable.When questioned, the family stated that her current condition is vastly different than it was as recently as the end of last week. ADVANCE DIRECTIVES:: On file. [facility]: Tin Ellis [phone] Has patient been provided with information about the portal?: No Did the patient sign up for the portal?: No CODE STATUS:: DNR/DNI CODE STATUS COMMENT:: Hospice INSURANCE COVERAGE / FINANCIAL ISSUES:: [facility] PRIMARY CARE PHYSICIAN:: Aury Melissa PLAN:: Ana was admitted to [facility] for symptom management and end of life care. According to Dr. Barrios, she is actively dying. Family present and very supportive. CM will continue to provide support to patient and family.
[2018-11-02] MEDS: MORPHine 2 MG/ML SYR (12:24)
--- NOTE | 2018-11-02 17:33 | NUR.NOTE ---
Nursing Note: Pt received calmed with both eyes closed. Responsed on physical stimuli by opening half of right eyes. Has episode of apneic breathing. Turned and repositioned.
[2018-11-02] MEDS: MORPHine 2 MG/ML SYR SC (22:23)
[2018-11-03 08:55] VITALS: PULSE 119; RESP 16; TEMP 38.4; O2SAT 93
[2018-11-03] MEDS: MORPHine 2 MG/ML SYR SC ×2 (09:56→11:14)
[2018-11-03] MEDS: LORazepam 1 MG TAB PO (11:14)
[2018-11-03] MEDS: MORPHine 10 MG/ML VIAL SC (12:26)
--- NOTE | 2018-11-03 15:46 | CHAPLAIN ---
Ana was unresponsive today. Her son was with her and her exhusband, when I visited. Ana later this afternoon with son and exhusband with her. I offered a prayer with the family. They are waiting for a niece to arrived from [place], [place] to arrive but have already made arrangements with [facility].
--- NOTE | 2018-11-03 16:14 | NUR.NOTE ---
Nursing Note: At 15:55 hrs. body was picked up by Sales staff home.
--- NOTE | 2018-11-03 18:07 | W.PM.PROGNOT ---
Date of Service Date of service: 11/03/18 Time of Service: 06:07 Assessment and Plan Assessment and plan (1) Multiple organ system failure: Status: Acute (2) Acute on chronic heart failure: Status: Acute (3) Chronic kidney disease (CKD) stage G4/A1, severely decreased glomerular filtration rate (GFR) between 15-29 mL/min/1.73 square meter and albuminuria creatinine ratio less than 30 mg/g: Status: Chronic Assessment and plan: Ana is actively dying. She appears comfortable at this time. We will leave medications as they are. I was called later in the day by nursing. They felt that the morphine was not holding her. I did have nursing give her a 10 mg bolus and then 5 mg q. 15 minutes as needed. I received a phone call later in the day that Ana had at 1440. She was comfortable Cause of multisystem organ failure, congestive heart failure, end-stage renal disease, pulmonary hypertension This document was created by [employer] voice recognition and may contain grammatical and translation errors. Subjective Subjective Patient reports: no new complaints Interval history since last seen: Ana is a 78-year-old woman who was admitted for hospice respite. She is actively dying. Her son is in the room. He states that she has been comfortable, but has needed a few morphine boluses Exam Narrative Exam Narrative: She is lying in bed. Breathing at about 8-10 times per minute. She does not seem labored. Her brow was not for road. She seems comfortable Objective Objective Clinical Data: Vital Signs Temperature 101.1 F H 11/03/18 08:55 Temperature Source Skin 11/03/18 08:55 Pulse 119 H 11/03/18 08:55 Pulse Rhythm Regular 11/01/18 13:41 Respiratory Rate 16 11/03/18 08:55 Respiratory Effort 11/03/18 10:00 Respiratory Depth Shallow 11/03/18 10:00 Respiratory Pattern Irregular 11/03/18 10:00 Blood Pressure 102/58 L 11/01/18 14:08 Pulse Oximetry 93 L 11/03/18 08:55 Oxygen Delivery Method Nasal Cannula 11/03/18 08:55 Oxygen Flow Rate 4 11/03/18 08:55 Intake & Output 11/02/18 11/03/18 11/03/18 23:59 11:59 23:59 Other: Comment has not void yet at this time.
== END 2018-11-03 14:40 | disposition expired | DRG 307 ==
PROVIDERS: Admitting Provider Family Medicine; PCP Student in an Organized Health Care Education/Training Program; Visit Provider Family Medicine
DX: I35.0 Nonrheumatic aortic (valve) stenosis (principal); N18.5 Chronic kidney disease, stage 5; Z51.5 Encounter for palliative care; E11.22 Type 2 diabetes mellitus with diabetic chronic kidney disease; I27.20 Pulmonary hypertension, unspecified; I50.9 Heart failure, unspecified; Z99.2 Dependence on renal dialysis
CPT/HCPCS: 99223; 99233; NC; J2270